=== PATIENT | male | born 1955 | race Caucasian/White ===

== ENCOUNTER 2018-12-14 08:00 | Inpatient (IN) | payer MEDICARE ==
[~2018-12-14] VITALS: Ht 172.7 cm; Wt 145.6 kg
[~2018-12-14 08:00] MED LIST changes: -FURO-68 PO; -GABA600T7 PO
[2018-12-14] MEDS ORDERED: FURO-68 PO (09:48)
[2018-12-14] MEDS ORDERED: GABA600T7 PO (09:53)
[2018-12-22] VITALS (10 sets, daily range): BP systolic 134–145; BP diastolic 67–78
[2018-12-22] MEDS ORDERED: cefOXitin SODIUM IV Push 1 GM VIAL. IVP SCH (06:00)
[2018-12-22] MEDS ORDERED: LIDOCAINE 1% PF 2 ML VIAL. ID PRN (07:00)
[2018-12-22] MEDS ORDERED: fentaNYL PF VIAL 100 MCG/2 ML VIAL IV PRN ×2 (07:00)
[2018-12-22] MEDS ORDERED: ONDANSETRON PF 4 MG/2 ML VIAL. IV PRN (07:00)
[2018-12-22] MEDS ORDERED: PROCHLORPERAZINE 10 MG/2 ML VIAL. IV PRN (07:00)
[2018-12-22] MEDS ORDERED: MORPHINE SULFATE 4 MG/ML VIAL. IV PRN (07:00)
[2018-12-22] MEDS ORDERED: DEXTROSE 50% 25 GM / 50ML DISP.SYRIN. IV ONE (10:15)
[2018-12-22] MEDS: IV RINGERS,LACTATED 1000ML 1,000 ML IV SCH ×2 (10:38→16:02)
[2018-12-22] MEDS ORDERED: IOHEXOL 300 MG/ML 100ML VIAL. ONE (10:45)
[2018-12-22] MEDS ORDERED: LIDOCAINE 2% JELLY 6ML IN APPLICATOR. ONE (10:45)
[2018-12-22 10:55] LABS: PROTHROMBIN TIME PATIENT 13.4 SEC (11.7-14.0)
[2018-12-22] MEDS ORDERED: ONDANSETRON PF 4 MG/2 ML VIAL. ONE (11:00)
[2018-12-22] MEDS ORDERED: ROCURONIUM 50 MG/5 ML VIAL. ONE ×2 (11:00→12:06)
[2018-12-22] MEDS ORDERED: PROPOFOL 20 ML IV ONE (11:00)
[2018-12-22] MEDS ORDERED: LIDOCAINE 2% PF 5 ML VIAL. ONE ×2 (11:00→15:34)
[2018-12-22] MEDS ORDERED: DEXAMETHASONE SOD PHOS 20 MG/5 ML VIAL. ONE (11:00)
[2018-12-22] MEDS ORDERED: fentaNYL PF VIAL 100 MCG/2 ML VIAL ONE (11:00)
--- NOTE | 2018-12-22 11:25 | PDOC1 ---
History and Physical Date of Admission Date of Admission DATE: 12/22/18 TIME: 11:20 Identification/Chief Complaint Chief Complaint colostomy Source Source: Chart review, Patient History of Present Illness History of Present Illness Sid is a morbidly obese male s/p Markie's procedure for perforated diverticulitis. He comes in for take down of his colostomy. Colonoscopy done yesterday was without preventative findings per pt report. Past Medical History Cardiovascular: HTN, Hyperlipidemia, Other Pulmonary: Pulmonary embolus, Other GI: GERD Heme/Onc: No pertinent hx Hepatobiliary: Cholelithiasis Psych: No pertinent hx Musculoskeletal: Osteoarthritis, Other Rheumatologic: No pertinent hx Infectious disease: No pertinent hx Renal/: No pertinent hx Endocrine: Diabetes Past Surgical History Past Surgical History: Cholecystectomy, Colon Resection Family History Family History: High Cholestrol Social History Smoke: Quit ALCOHOL: none Drugs: None Current Medications Current Medications Current Medications Ondansetron HCl (Zofran) 4 mg PRN Q6HRS PRN IV NAUSEA/VOMITING; Start 12/22/18 at 07:00; Stop 12/23/18 at 06:59 Fentanyl Citrate (Fentanyl 2ml Vial) 25 mcg PRN Q5MIN PRN IV MILD PAIN; Start 12/22/18 at 07:00; Stop 12/23/18 at 06:59 Fentanyl Citrate (Fentanyl 2ml Vial) 50 mcg PRN Q5MIN PRN IV MODERATE TO SEVERE PAIN; Start 12/22/18 at 07:00; Stop 12/23/18 at 06:59 Morphine Sulfate (Morphine Sulfate) 1 mg PRN Q10MIN PRN IV SEVERE PAIN; Start 12/22/18 at 07:00; Stop 12/23/18 at 06:59 Ringer's Solution 1,000 ml @ 30 mls/hr Q24H IV Last administered on 12/22/18at 10:38; Start 12/22/18 at 07:00; Stop 12/22/18 at 18:59 Lidocaine HCl (Xylocaine-Mpf 1% 2ml Vial) 2 ml PRN 1X PRN ID IV START; Start at 07:00; Stop 12/23/18 at 06:59 Hydromorphone HCl (Dilaudid) 0.5 mg PRN Q10MIN PRN IV SEV PAIN, Second choice; Start 12/22/18 at 07:00; Stop 12/23/18 at 06:59 Prochlorperazine Edisylate (Compazine) 5 mg PACU PRN PRN IV NAUSEA, MRX1; Start 12/22/18 at 07:00; Stop 12/23/18 at 06:59 Cefoxitin Sodium (Mefoxin) 1 gm PREOP 1X IVP ; Start 12/22/18 at 06:00 Dextrose (Dextrose 50%-Water Syringe) 25 gm 1X ONCE IV Last administered on at 10:38; Start 12/22/18 at 10:15; Stop 12/22/18 at 10:16; Status DC Iohexol (Omnipaque 300 Mg/ml) 100 ml STK-MED ONCE .ROUTE ; Start 12/22/18 at 10: 45; Stop 12/22/18 at 10:46; Status DC Lidocaine HCl (Glydo (Lidocaine) Jelly) 6 enma STK-MED ONCE .ROUTE ; Start at 10:45; Stop 12/22/18 at 10:46; Status DC Lidocaine HCl (Glydo (Lidocaine) Jelly) 6 enma STK-MED ONCE .ROUTE ; Start at 10:45; Stop 12/22/18 at 10:46; Status DC Propofol 20 ml @ As Directed STK-MED ONCE IV ; Start 12/22/18 at 11:00; Stop at 11:01; Status DC Dexamethasone Sodium Phosphate (Decadron) 20 mg STK-MED ONCE .ROUTE ; Start at 11:00; Stop 12/22/18 at 11:01; Status DC Lidocaine HCl (Lidocaine Pf 2% Vial) 5 ml STK-MED ONCE .ROUTE ; Start 12/22/18 at 11:00; Stop 12/22/18 at 11:01; Status DC Ondansetron HCl (Zofran) 4 mg STK-MED ONCE .ROUTE ; Start 12/22/18 at 11:00; Stop 12/22/18 at 11:01; Status DC Rocuronium [place] (Zemuron) 50 mg STK-MED ONCE .ROUTE ; Start 12/22/18 at 11:00 ; Stop 12/22/18 at 11:01; Status DC Fentanyl Citrate (Fentanyl 2ml Vial) 100 mcg STK-MED ONCE .ROUTE ; Start at 11:00; Stop 12/22/18 at 11:01; Status DC Active Scripts Active Morphine Sulfate Er (Morphine Sulfate) 30 Mg Tablet.er 60 Mg PO BID 30 Days Reported Gabapentin 600 Mg Tablet 300 Mg PO BID Lasix (Furosemide) 40 Mg Tablet 1 Tab PO DAILY Glimepiride 4 Mg Tablet 1 Tab PO BID Bystolic (Nebivolol Hcl) 20 Mg Tablet 20 Mg PO DAILY Levothyroxine Sodium 50 Mcg Tablet 75 Mcg PO DAILY Warfarin Sodium 6 Mg Tablet 6 Mg PO DAILY Metformin Hcl 1,000 Mg Tablet 1 Tab PO BID Losartan-Hctz 100-12.5 Mg Tab (Losartan/Hydrochlorothiazide) 1 Each Tablet 1 Tab PO DAILY Allergies Allergies: Coded Allergies: I S O L A T I O N *CONTACT* (Verified Allergy, Unknown, 12/22/18) mrsa No Known Medication Allergies (Verified Allergy, Unknown, 12/22/18) ROS Review of System negative with exception of present complaints Physical Exam General: Alert, Oriented X3, No acute distress HEENT: Atraumatic Lungs: Normal air movement Heart: RRR Abdomen: Soft, Other (obese, well healed midline scar, left sided ostomy ) Extremities: No clubbing Skin: Other (warm, dry) Neuro: Normal speech Vitals Vitals Vital Signs Date Time Temp Pulse Resp B/P (MAP) Pulse Ox O2 Delivery O2 Flow Rate FiO2 12/22/18 10:13 97.4 66 142/72 97 97.4 12/22/18 10:06 20 Labs Labs Laboratory Tests Test 12/22/18 10:07 12/22/18 10:15 12/22/18 10:56 Glucose (Fingerstick) 67 mg/dL (70-99) 84 mg/dL (70-99) Prothrombin Time 13.4 SEC (11.7-14.0) Prothromb Time International Ratio 1.1 (0.8-1.1) Activated Partial Thromboplast Time 30 SEC (24-38) Laboratory Tests Test 12/22/18 10:07 12/22/18 10:15 12/22/18 10:56 Glucose (Fingerstick) 67 mg/dL (70-99) 84 mg/dL (70-99) Prothrombin Time 13.4 SEC (11.7-14.0) Prothromb Time International Ratio 1.1 (0.8-1.1) Activated Partial Thromboplast Time 30 SEC (24-38) VTE Prophylaxis Ordered VTE Prophylaxis Devices: Yes VTE Pharmacological Prophylaxi: Contraindicated Assessment/Plan Assessment/Plan s/p end colostomy, Markie's pouch for perforated diverticulitis, brought for takedown discussed risks with pt and his including but not limited to bleeding, infection, anastomotic leak, possible need for a diverting ileostomy, possible inability to reconnect with resultant permanent end ileostomy they understand and will proceed ANNIE HARRIS MD Dec 22, 2018 11:25
[2018-12-22] MEDS ORDERED: cefOXitin SODIUM 2 GM in IV DEXTROSE 5% 100ML 100 ML IV ONE ×2 (11:45→14:00)
[2018-12-22] MEDS ORDERED: VASOPRESSIN 20 UNIT/ML VIAL. ONE (11:59)
[2018-12-22] MEDS ORDERED: GLYCOPYRROLATE 1 MG/5 ML VIAL. ONE (11:59)
--- NOTE | 2018-12-22 12:09 | PDOC4 ---
OPERATIVE NOTE Date: Date: Dec 22, 2018 Pre-Op Diagnosis: diverticulitis Post-Op Diagnosis: same Procedure Performed: cysto, bl ureter stents Surgeon: Anesthesia Type: ga Blood Loss: 0ml Specimans Obtained: none Findings: nl UOs. Complications: none evident AMBERLY ZIEGLER MD Dec 22, 2018 12:09
[2018-12-22] MEDS ORDERED: PHENYLEPHRINE 10 MG/ML VIAL. ONE (12:15)
--- NOTE | 2018-12-22 12:57 | OP ---
DATE OF SURGERY: PREOPERATIVE DIAGNOSIS: Diverticulitis. POSTOPERATIVE DIAGNOSIS: Diverticulitis. PROCEDURE: Cystoscopy and bilateral stent placement. SURGEON: Mireya Petersen M.D. ANESTHESIA: General. CONDITION: Stable. COMPLICATIONS: None. ESTIMATED BLOOD LOSS: Zero. FINDINGS: Bilateral ureteral orifice in orthotopic and patent position. DESCRIPTION OF PROCEDURE: The patient was taken back to the procedure room and placed in supine position and put under general anesthesia. He was prepped and draped in the usual sterile fashion in dorsal lithotomy position. Time-out was performed. SCDs were attached, IV antibiotics were administered. A 21-Fijian rigid cystoscope was advanced per urethra into the bladder. Careful systemic review of the bladder visualized no foreign body, stones or tumors. Left hemitrigone was visualized in orthotopic and patent position. This was cannulated with a 5-Fijian open-ended ureteral catheter all the way into the kidney. Cystoscope was withdrawn and re-introduced. I did the same on the right side. A 16-Fijian Goff catheter was placed in the bladder with urine drainage and return. With the help of Angiocath, I managed to place both ureteral catheters into the catheter tubing and this was attached to the bag. The patient was handed off to General Surgery. MIREYA PETERSEN MD DR: WENDIE/xenia JOB#: [id number] / [id number]
[2018-12-22] MEDS ORDERED: ALBUMIN HUMAN 5% 500 ML IV ONE (14:35)
[2018-12-22] MEDS ORDERED: SEVOFLURANE > 120 MINUTES. IH ONE (15:03)
[2018-12-22] MEDS ORDERED: NEOSTIGMINE 10 MG/10 ML VIAL. ONE (15:03)
[2018-12-22] MEDS ORDERED: MORPHINE SULFATE 10 MG/ML VIAL. ONE (15:42)
[2018-12-22] MEDS: HYDROmorphone 2 MG/ML VIAL IV PRN ×4 (16:03→17:23)
--- NOTE | 2018-12-22 16:09 | RAD ---
Portable abdomen, 12/22/2018: HISTORY: Postop evaluation, status post colostomy takedown An AP view of the abdomen centered on the left reveals a nonspecific gas pattern. There is a linear radiopacity compatible with a drain projected over the right side of the pelvis. There are scattered vascular calcifications. There is no evidence of a retained surgical instrument, needle or radiopaque sponge on this single view. Electronically signed by: Waldemar Morton MD (12/22/2018 4:06 PM) [facility]
[2018-12-22] MEDS ORDERED: BENZOCAINE/MENTHOL LOZENGE. PO PRN (16:30)
[2018-12-22] MEDS ORDERED: PHENOL ORAL SPRAY 177ML BOTTLE. PO PRN (16:30)
[2018-12-22] MEDS ORDERED: 0.9 % SODIUM CHLORIDE 10 ML DISP.SYRIN. IV PRN (16:30)
--- NOTE | 2018-12-22 16:33 | PDOC ---
BRIEF OPERATIVE NOTE Date: Dec 22, 2018 Pre-Op Diagnosis s/p end colostomy Post-Op Diagnosis same Procedure Performed rigid proctoscopy ALEXANDRA takedown colostomy with colo-colotomy Surgeon Nathan Maintenance Supervisor Kimberlyn BIANCHI Anesthesia Type: General Blood Loss 150cc IV Fluid 3000cc crystalloid 500cc albumin Urine Output 450cc Specimens Obtained stoma proximal pouch Findings adhesions Complications none ANNIE HARRIS MD Dec 22, 2018 16:32
[2018-12-22] MEDS: HYDROmorphone 12mg/30ml PCA 30 ML IV PRN (16:57)
[2018-12-22] MEDS ORDERED: NALOXONE 0.4 MG/ML VIAL. IV PRN (17:00)
--- NOTE | 2018-12-22 19:33 | NUR ---
pt arrived to floor at 1730 from PACU via bed. pt is alert and oriented. pt is in stable condition. pt has FAM drain to RLQ and a midline dressing, all dressings are CDI. pt is on 2LNC and on a OBSTETRICIAN GYNECOLOGIST. pt has at bedside and call light within reach. pt is complaining of 8/10 pain at this time with a goal of 3-4/10. pt has wound that was pictured and documented below his left ear. received report from RONALD Pollock in PACU. will continue to monitor.
[2018-12-22] MEDS: ENOXAPARIN 40 MG/0.4 ML SYRINGE. SQ SCH (20:19)
--- NOTE | 2018-12-22 20:19 | NUR ---
This RN non-administered Lovenox dose 2100, due to sooner than 10 hours post-op. See protocol. Will initiate SCDs and remove Romario kimbrough QHS.
[2018-12-22] MEDS: POTASSIUM CL 20MEQ-0.45% NACL 1,000 ML IV SCH (20:23)
[2018-12-23] MEDS: POTASSIUM CL 20MEQ-0.45% NACL 1,000 ML IV SCH ×3 (01:46→22:02)
--- NOTE | 2018-12-23 02:57 | NUR ---
Patient continually rating pain 8/10, advised that he feels like the SUPERVISOR INCISING is not working. This RN increased demanding dose from 0.2 to 0.3 Q10 per SUPERVISOR INCISING protocol. Will continue to monitor closely.
[2018-12-23 03:00] VITALS: BP 120/65
[2018-12-23 07:00] VITALS: BP 132/66
--- NOTE | 2018-12-23 07:53 | NUR ---
called consult in to dr alejandro at this time
[2018-12-23] MEDS: ENOXAPARIN 40 MG/0.4 ML SYRINGE. SQ SCH ×2 (08:24→22:03)
[2018-12-23] MEDS: HYDROmorphone 12mg/30ml PCA 30 ML IV PRN ×2 (08:27→19:42)
[2018-12-23] MEDS: ONDANSETRON PF 4 MG/2 ML VIAL. IV PRN (08:28)
--- NOTE | 2018-12-23 09:19 | NUR ---
IP: Pt has a hx of + mrsa screen on 09/05/18. Pt to be in contact precautions until there are 2 negative screens 7 days apart.
--- NOTE | 2018-12-23 10:02 | PDOC ---
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 HUMAN RESOURCES PROFESSIONAL 12/23/18 1002: SURGICAL PROGRESS NOTE Subjective not the best pain control no emesis no flatus Vital Signs Vital Signs Date Time Temp Pulse Resp B/P (MAP) Pulse Ox O2 Delivery O2 Flow Rate FiO2 12/23/18 09:00 Nasal Cannula 2.0 12/23/18 07:00 98.1 75 18 132/66 (88) 94 98.1 I&O Intake and Output 12/23/18 06:59 Intake Total 3805 ml Output Total 3495 ml Balance 310 ml Intake Oral 0 ml IV Total 3805 ml Output Urine Total 2700 ml Gastric Drainage Total 500 ml Drainage Total 145 ml Estimated Blood Loss 150 ml PATIENT HAS A RUGGIERO: Yes General: Alert, Oriented X3, Cooperative, No acute distress HEENT: Other (ng bilious ) Abdomen: Soft, Other (dressing dry) Labs Laboratory Tests Test 12/22/18 10:07 12/22/18 10:15 12/22/18 10:56 12/22/18 12:26 Glucose (Fingerstick) 67 mg/dL (70-99) 84 mg/dL (70-99) 78 mg/dL (70-99) Prothrombin Time 13.4 SEC (11.7-14.0) Prothromb Time International Ratio 1.1 (0.8-1.1) Activated Partial Thromboplast Time 30 SEC (24-38) Test 12/22/18 13:47 12/22/18 16:49 12/22/18 20:34 12/23/18 07:15 Glucose (Fingerstick) 84 mg/dL (70-99) 136 mg/dL (70-99) 142 mg/dL (70-99) 126 mg/dL (70-99) Laboratory Tests Test 12/22/18 10:07 12/22/18 10:15 12/22/18 10:56 12/22/18 12:26 Glucose (Fingerstick) 67 mg/dL (70-99) 84 mg/dL (70-99) 78 mg/dL (70-99) Prothrombin Time 13.4 SEC (11.7-14.0) Prothromb Time International Ratio 1.1 (0.8-1.1) Activated Partial Thromboplast Time 30 SEC (24-38) Test 12/22/18 13:47 2/20/19 16:49 12/22/18 20:34 12/23/18 07:15 Glucose (Fingerstick) 84 mg/dL (70-99) 136 mg/dL (70-99) 142 mg/dL (70-99) 126 mg/dL (70-99) Problem List POD #1 takedown colostomy await bowel function, continue NG start some gradual activity ANNIE HARRIS MD 12/23/18 1157: SURGICAL PROGRESS NOTE Assessment/Plan pt seen as above needs to get out of bed NG trial in the AM 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 APRN Dec 23, 2018 10:02 ANNIE HARRIS MD Dec 23, 2018 11:57
--- NOTE | 2018-12-23 10:22 | OP ---
DATE OF SURGERY: 12/22/2018 PREOPERATIVE DIAGNOSIS: Status post end colostomy, Markie pouch for perforated diverticulitis. POSTOPERATIVE DIAGNOSIS: Status post end colostomy, Markie pouch for perforated diverticulitis. PROCEDURE: 1. Rigid proctoscopy. 2. Lysis of adhesions. 3. Takedown colostomy with colocolostomy. SURGEON: Kalyan Harris MD HAND CLOTH FOLDER: ARIAS Khan and ARIAS Tierney. ANESTHESIA: General endotracheal. ESTIMATED BLOOD LOSS: 150 mL. INTRAVENOUS FLUID: 3000 crystalloid, 500 of albumin. URINE OUTPUT: 450 mL. INDICATIONS: The patient is a morbidly obese (BMI of 49) male status post end colostomy, Markie pouch for perforated diverticulitis brought for takedown. OPERATIVE FINDINGS: The liver was smooth and sharp. Stomach unremarkable with an NG tube in place. The small bowel was run from ligament of Treitz to ileocecal valve without abnormality save extensive filmy adhesions. Appendix surgically absent. Cecum was distended transverse colon unremarkable. The distal bowel showed no active inflammatory process. DESCRIPTION OF PROCEDURE: The patient went to the operating suite, given a general endotracheal anesthetic, placed in dorsal lithotomy position. Cystoscopy with ureteral stents placed by Dr. Petersen who will dictate. Digital rectal exam done and the rigid scope placed in the anal canal and under direct vision advanced to approximately 20 cm from the anal verge. A 36-Slovenian chest tube was left for a palpable reference intraabdominally sewn to the buttocks with a silk stitch. The abdomen and perineum were then prepped and draped in usual sterile fashion. The old midline scar was excised and the abdomen carefully entered, opened with cautery taking care to avoid injury to abdominal contents. Abdomen explored with results as noted above. With an Omni self-retaining retractor for exposure, the small bowel was mobilized in its entirety from the ligament of Treitz to ileocecal valve. Two small serosal injuries were repaired with interrupted 3-0 Vicryl. No enterotomies created. We then turned our attention to the distal bowel. The chest tube provided palpable reference. It was then removed. The proximal end was freshened in anticipation of an anastomosis and appeared viable. Colostomy then taken down and a short segment of the distal bowel including the stoma was resected. Similarly, the proximal end of the Markie pouch was resected back to healthy viable tissue. End-to-end anastomosis created with a posterior row of interrupted 3-0 Vicryl suture. The proximal bowel occluded with atraumatic clamp. Staple lines excised. Mucosal anastomosis created with a running locked 3-0 chromic first posteriorly, then anteriorly. Clamp removed. Anastomosis completed with anterior row of interrupted 3-0 Vicryl suture. Gloves were changed and the abdomen was irrigated, evacuated and checked for hemostasis. The anastomosis was submerged in saline and insufflation from below revealed no evidence of air leak. A 19-Slovenian round Mitchel drain was brought through a right lower quadrant stab wound, left in the true pelvis, sewn to the skin with silk stitch. A large vessel loop was placed around the distal small bowel and delivered through the abdominal wall for a "ghost" ileostomy. Area was checked for adequate hemostasis and when present and a correct sponge count obtained, the midline incision was closed in a single layer using looped #1 PDS in running fashion, tied in the middle. Prior to closure, the abdominal wall rent from the old stoma site was closed with a running stitch of 0 Vicryl. Subcutaneous approximated with 3-0 Vicryl. A Damien drain placed in the depths of the wound. Skin closed with a subcuticular 4-0 Monocryl. Anterior sheath at the stoma site closed with a running stitch of 0 Vicryl. The stoma skin approximated with a 3-0 Prolene loosely and Telfa ezequiel placed. Sterile dressing applied. The ureteral stents removed and they were intact. Postop foreign body film was negative for unexplained foreign body. The patient was awakened from his anesthetic and taken to the recovery room in satisfactory condition. KALYAN HARRIS MD DR: FLORIN/xenia JOB#: [id number] / [id number]
[2018-12-23 11:00] VITALS: BP 118/63
--- NOTE | 2018-12-23 11:02 | NUR ---
1100 rescue bolus was given for pain score of 7/10. will continue to monitor.
--- NOTE | 2018-12-23 13:18 | NUR ---
SS following for discharge planning. SS reviewed pt chart. Pt is s/p surgery. Pt is from home with spouse and currently requiring oxygen. PT/OT ordered. SS will await recommendations from PT/OT evaluations and will proceed accordingly with discharge planning.
--- NOTE | 2018-12-23 14:41 | NUR ---
1345 rescue bolus given for pain score of 7/10. will continue to monitor.
--- NOTE | 2018-12-23 14:58 | NUR ---
1455 rescue bolus given for pain score 8/10. will continue to monitor.
--- NOTE | 2018-12-23 14:59 | NUR ---
Wound Care: Patient seen per wound care consult regarding wound to left lower ear. See wound assessment. Dressing removed and wound cleansed and assessed. Recommendations for petroleum gauze and cover with telfa island dressing changing every other day. Dressing applied and patient tolerated well. No other wounds noted upon complete head to toe assessment. Dressing change instructions left in room. Bed lowered and call light in reach. Patient refused to turn at this time.
[2018-12-23 15:00] VITALS: BP 117/67
[2018-12-23 19:20] VITALS: BP 139/68
--- NOTE | 2018-12-23 20:02 | PDOC2 ---
CONSULT Date of Consult Date of Consult DATE: 12/23/18 TIME: 19:54 Reason for Consult Reason for Consult: Medical management Referring Physician Referring Physician: Dr. Evans Identification/Chief Complaint Chief Complaint For surgery Source Source: Chart review, Patient History of Present Illness Reason for Visit: Patient is a 63-year-old gentleman with past medical history of hypertension and dyslipidemia pulmonary embolism on chronic anticoagulation with Coumadin was in his usual state of health until couple months ago when he suffered unfortunately from ruptured diverticulitis requiring a Marinelli's pouch. The patient came to the hospital today for a reversal and takedown of his colostomy. The patient is being seen post op the time my evaluation he is in no acute distress he does complain of some discomfort over his abdominal area after surgery. Patient is on chronic narcotic therapy at home and currently has a INSIDE [employer] pump for his analgesia. We have been asked to see the patient consultation for management of his multiple medical comorbidities. Patient at the time my evaluation seems to be in no apparent distress no concerns voiced during my visit PAST MEDICAL HISTORY Cardiovascular: HTN, Hyperlipidemia, Other (venous insufficeincy) Pulmonary: Pulmonary embolus, Other (DORCAS) GI: GERD Hepatobiliary: Cholelithiasis Psych: No pertinent hx Musculoskeletal: Osteoarthritis, Other (morbid obesity) Rheumatologic: No pertinent hx Infectious disease: No pertinent hx Renal/: No pertinent hx Endocrine: Diabetes (2) Dermatology: Other (venous dermatitis) Past Medical History Past Medical History PAST MEDICAL HISTORY Cardiovascular: HTN, Hyperlipidemia, Other (venous insufficeincy) Pulmonary: Pulmonary embolus, Other (DORCAS) GI: GERD Hepatobiliary: Cholelithiasis Psych: No pertinent hx Musculoskeletal: Osteoarthritis, Other (morbid obesity) Rheumatologic: No pertinent hx Infectious disease: No pertinent hx Renal/: No pertinent hx Endocrine: Diabetes (2) Dermatology: Other (venous dermatitis) Cardiovascular: HTN, Hyperlipidemia, Other Pulmonary: Pulmonary embolus, Other GI: GERD Heme/Onc: No pertinent hx Hepatobiliary: Cholelithiasis Psych: No pertinent hx Musculoskeletal: Osteoarthritis, Other Rheumatologic: No pertinent hx Infectious disease: No pertinent hx Renal/: No pertinent hx Endocrine: Diabetes Past Surgical History Past Surgical History: Cholecystectomy, Colon Resection Family History Family History: High Cholestrol Social History Quit ALCOHOL: none Drugs: None Lives: with Family Current Medications Current Medications Current Medications Ondansetron HCl (Zofran) 4 mg PRN Q6HRS PRN IV NAUSEA/VOMITING; Start 12/22/18 at 07:00; Stop 12/23/18 at 06:59; Status DC Fentanyl Citrate (Fentanyl 2ml Vial) 25 mcg PRN Q5MIN PRN IV MILD PAIN; Start 12/22/18 at 07:00; Stop 12/23/18 at 06:59; Status DC Fentanyl Citrate (Fentanyl 2ml Vial) 50 mcg PRN Q5MIN PRN IV MODERATE TO SEVERE PAIN; Start 12/22/18 at 07:00; Stop 12/23/18 at 06:59; Status DC Morphine Sulfate (Morphine Sulfate) 1 mg PRN Q10MIN PRN IV SEVERE PAIN; Start 12/22/18 at 07:00; Stop 12/23/18 at 06:59; Status DC Ringer's Solution 1,000 ml @ 30 mls/hr Q24H IV Last administered on 12/22/18at 16:02; Start 12/22/18 at 07:00; Stop 12/22/18 at 18:59; Status DC Lidocaine HCl (Xylocaine-Mpf 1% 2ml Vial) 2 ml PRN 1X PRN ID IV START; Start at 07:00; Stop 12/23/18 at 06:59; Status DC Hydromorphone HCl (Dilaudid) 0.5 mg PRN Q10MIN PRN IV SEV PAIN, Second choice Last administered on 12/22/18at 17:23; Start 12/22/18 at 07:00; Stop 12/23/18 at 06:59; Status DC Prochlorperazine Edisylate (Compazine) 5 mg PACU PRN PRN IV NAUSEA, MRX1 Last administered on 12/22/18at 16:03; Start 12/22/18 at 07:00; Stop 12/23/18 at 06:59 ; Status DC Cefoxitin Sodium (Mefoxin) 1 gm PREOP 1X IVP ; Start 12/22/18 at 06:00; Status Cancel Dextrose (Dextrose 50%-Water Syringe) 25 gm 1X ONCE IV Last administered on at 10:38; Start 12/22/18 at 10:15; Stop 12/22/18 at 10:16; Status DC Iohexol (Omnipaque 300 Mg/ml) 100 ml VFA ONCE .ROUTE ; Start 12/22/18 at 10: 45; Stop 12/22/18 at 10:46; Status DC Lidocaine HCl (Glydo (Lidocaine) Jelly) 6 enma STK-MED ONCE .ROUTE ; Start at 10:45; Stop 12/22/18 at 10:46; Status DC Lidocaine HCl (Glydo (Lidocaine) Jelly) 6 enma STK-MED ONCE .ROUTE ; Start at 10:45; Stop 12/22/18 at 10:46; Status Cancel Propofol 20 ml @ As Directed STK-MED ONCE IV ; Start 12/22/18 at 11:00; Stop at 11:01; Status DC Dexamethasone Sodium Phosphate (Decadron) 20 mg STK-MED ONCE .ROUTE ; Start at 11:00; Stop 12/22/18 at 11:01; Status DC Lidocaine HCl (Lidocaine Pf 2% Vial) 5 ml STK-MED ONCE .ROUTE ; Start 12/22/18 at 11:00; Stop 12/22/18 at 11:01; Status DC Ondansetron HCl (Zofran) 4 mg STK-MED ONCE .ROUTE ; Start 12/22/18 at 11:00; Stop 12/22/18 at 11:01; Status DC Rocuronium Trinity (Zemuron) 50 mg STK-MED ONCE .ROUTE ; Start 12/22/18 at 11:00 ; Stop 12/22/18 at 11:01; Status DC Fentanyl Citrate (Fentanyl 2ml Vial) 100 mcg STK-MED ONCE .ROUTE ; Start at 11:00; Stop 12/22/18 at 11:01; Status DC Cefoxitin Sodium 2 gm/Dextrose 100 ml @ 200 mls/hr ONCE ONCE IV Last administered on 12/22/18at 11:46; Start 12/22/18 at 11:45; Stop 12/22/18 at 12:14 ; Status DC Ephedrine Sulfate (Akovaz) 50 mg STK-MED ONCE .ROUTE ; Start 12/22/18 at 11:56; Stop 12/22/18 at 11:57; Status DC Ephedrine Sulfate (Akovaz) 25 mg 1X ONCE IV ; Start 12/22/18 at 12:00; Stop at 12:01; Status DC Glycopyrrolate (Robinul) 1 mg STK-MED ONCE .ROUTE ; Start 12/22/18 at 11:59; Stop 12/22/18 at 12:00; Status DC Vasopressin (Vasostrict) 20 unit STK-MED ONCE .ROUTE ; Start 12/22/18 at 11:59; Stop 12/22/18 at 12:00; Status DC Rocuronium Trinity (Zemuron) 50 mg STK-MED ONCE .ROUTE ; Start 12/22/18 at 12:06 ; Stop 12/22/18 at 12:07; Status DC Phenylephrine HCl (Craig-Synephrine Inj) 10 mg STK-MED ONCE .ROUTE ; Start at 12:15; Stop 12/22/18 at 12:16; Status DC Cefoxitin Sodium 2 gm/Dextrose 100 ml @ 200 mls/hr ONCE ONCE IV Last administered on 12/22/18at 13:55; Start 12/22/18 at 14:00; Stop 12/22/18 at 14:29 ; Status DC Albumin Human 500 ml @ As Directed STK-MED ONCE IV ; Start 12/22/18 at 14:35; Stop 12/22/18 at 14:36; Status DC Sevoflurane (Ultane) 90 ml STK-MED ONCE IH ; Start 12/22/18 at 15:03; Stop 12/22 at 15:04; Status DC Neostigmine Methylsulfate (Bloxiverz) 10 mg STK-MED ONCE .ROUTE ; Start at 15:03; Stop 12/22/18 at 15:04; Status DC Lidocaine HCl (Lidocaine Pf 2% Vial) 5 ml STK-MED ONCE .ROUTE ; Start 12/22/18 at 15:34; Stop 12/22/18 at 15:35; Status DC Morphine Sulfate (Morphine Sulfate) 10 mg STK-MED ONCE .ROUTE ; Start 12/22/18 at 15:42; Stop 12/22/18 at 15:43; Status DC Enoxaparin Sodium (Lovenox 40mg Syringe) 40 mg Q12HR SQ Last administered on at 08:24; Start 12/22/18 at 21:00 Sodium Chloride (Normal Saline Flush) 3 ml QSHIFT PRN IV AFTER MEDS AND BLOOD DRAWS; Start 12/22/18 at 16:30 Potassium Chloride/Sodium Chloride 1,000 ml @ 100 mls/hr Q10H IV Last administered on 12/23/18at 11:56; Start 12/22/18 at 18:00 Hydromorphone HCl 30 ml @ 0 mls/hr CONT PRN PRN IV PER PROTOCOL Last administered on 12/23/18at 19:42; Start 12/22/18 at 16:30 Ondansetron HCl (Zofran) 4 mg PRN Q6HRS PRN IV NAUESA, 1ST CHOICE Last administered on 12/23/18at 08:28; Start 12/22/18 at 16:30 Throat Lozenges (Chloraseptic) 1 spray PRN Q2HR PRN PO SORE THROAT 2ND CHOICE; Start 12/22/18 at 16:30 Throat Lozenges (Cepacol Sore Throat Lozenge) 1 sridhar PRN Q2HRS PRN PO SORE THROAT 1ST CHOICE; Start 12/22/18 at 16:30 Naloxone HCl (Narcan) 0.4 mg PRN Q2MIN PRN IV SEE COMMENTS; Start 12/22/18 at 17:00 Cefoxitin Sodium 100 ml @ As Directed STK-MED ONCE IV ; Start 12/22/18 at 11:32 ; Stop 12/23/18 at 10:40; Status DC Active Scripts Active Morphine Sulfate Er (Morphine Sulfate) 30 Mg Tablet.er 60 Mg PO BID 30 Days Reported Gabapentin 600 Mg Tablet 300 Mg PO BID Lasix (Furosemide) 40 Mg Tablet 1 Tab PO DAILY Glimepiride 4 Mg Tablet 1 Tab PO BID Bystolic (Nebivolol Hcl) 20 Mg Tablet 20 Mg PO DAILY Levothyroxine Sodium 50 Mcg Tablet 75 Mcg PO DAILY Warfarin Sodium 6 Mg Tablet 6 Mg PO DAILY Metformin Hcl 1,000 Mg Tablet 1 Tab PO BID Losartan-Hctz 100-12.5 Mg Tab (Losartan/Hydrochlorothiazide) 1 Each Tablet 1 Tab PO DAILY Allergies Allergies: Coded Allergies: I S O L A T I O N *CONTACT* (Verified Allergy, Unknown, 12/22/18) mrsa No Known Medication Allergies (Verified Allergy, Unknown, 12/22/18) ROS Review of System Pertinent as per history of present illness with abdominal pain and otherwise 14 point review of system is negative Physical Exam Physical Exam Gen.: Morbidly obese in mild to moderate distress Head: Normal shape atraumatic Eyes: Pupils equal reactive to light and accommodation, normal conjunctivae and lids Ears: Normal shape Nose: Normal shape no trauma Mouth: No exudates of the back of throat no thrush no lesions Neck: Supple no JVD no carotid bruit or lymphadenopathy no thyromegaly Chest: Lungs clear to auscultation with good inspiratory effort no crackles rales or rhonchi Cardiovascular: S1-S2 regular rhythm no murmurs gallops or rubs Abdomen: Bowel sounds hypoactive positive tenderness surgical dressings in place Extremities: No clubbing no cyanosis no edema peripheral pulses palpated bilaterally Neurological: Alert awake oriented in person time place and situation, cranial nerves II through XII intact, no motor or sensory deficits appreciated Psych: Appropriate mood, cooperative Vitals VITALS Vital Signs Date Time Temp Pulse Resp B/P (MAP) Pulse Ox O2 Delivery O2 Flow Rate FiO2 12/23/18 19:42 13 94 Nasal Cannula 2.0 12/23/18 15:00 98.1 91 117/67 (84) 98.1 Labs Labs Laboratory Tests Test 12/22/18 10:07 12/22/18 10:15 12/22/18 10:56 12/22/18 12:26 Glucose (Fingerstick) 67 mg/dL (70-99) 84 mg/dL (70-99) 78 mg/dL (70-99) Prothrombin Time 13.4 SEC (11.7-14.0) Prothromb Time International Ratio 1.1 (0.8-1.1) Activated Partial Thromboplast Time 30 SEC (24-38) Test 12/22/18 13:47 12/22/18 16:49 12/22/18 18:15 12/22/18 20:34 Glucose (Fingerstick) 84 mg/dL (70-99) 136 mg/dL (70-99) 142 mg/dL (70-99) Nasal Screen MRSA (PCR) Positive (Negative) Test 12/23/18 07:15 12/23/18 11:48 12/23/18 17:10 Glucose (Fingerstick) 126 mg/dL (70-99) 114 mg/dL (70-99) 113 mg/dL (70-99) Laboratory Tests Test 12/22/18 20:34 12/23/18 07:15 12/23/18 11:48 12/23/18 17:10 Glucose (Fingerstick) 142 mg/dL (70-99) 126 mg/dL (70-99) 114 mg/dL (70-99) 113 mg/dL (70-99) Assessment/Plan Assessment/Plan status post colostomy takedown HTN, fairly controlled Hyperlipidemia History of Pulmonary embolus, chronic anticoagulation with coumadin GERD Cholelithiasis Osteoarthritis, Other (morbid obesity) Diabetes mellitus type 2 insulin requiring Venous dermatitis Plan: resume home meds incentive spirometry resume coumadin once approved by attending further recommendations based on clinical course thank you for the consult. SABRINA INFANTE MD Dec 23, 2018 20:02
[2018-12-23 22:51] VITALS: BP 119/68
[2018-12-24 03:15] VITALS: BP_SYST 108; BP_SYST 134; BP_DIAS 64; BP_DIAS 72
[2018-12-24] MEDS: ONDANSETRON PF 4 MG/2 ML VIAL. IV PRN ×2 (04:31→15:29)
[2018-12-24 07:00] VITALS: BP 137/79
[2018-12-24] MEDS: POTASSIUM CL 20MEQ-0.45% NACL 1,000 ML IV SCH (08:38)
[2018-12-24] MEDS: ENOXAPARIN 40 MG/0.4 ML SYRINGE. SQ SCH ×2 (08:38→21:44)
[2018-12-24] MEDS: HYDROmorphone 12mg/30ml PCA 30 ML IV PRN ×2 (09:01→19:55)
--- NOTE | 2018-12-24 09:49 | PDOC ---
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 12/24/18 0949: SURGICAL PROGRESS NOTE Subjective resting up once yesterday no flatus NG over 2000cc out Vital Signs Vital Signs Date Time Temp Pulse Resp B/P (MAP) Pulse Ox O2 Delivery O2 Flow Rate FiO2 12/24/18 09:01 Nasal Cannula 2.0 12/24/18 07:00 97.8 90 18 137/79 (98) 91 97.8 I&O Intake and Output 12/24/18 06:59 Intake Total 25 ml Output Total 6545 ml Balance -6520 ml IV Total 25 ml Output Urine Total 2550 ml Gastric Drainage Total 3950 ml Drainage Total 45 ml PATIENT HAS A RUGGIERO: Yes (dc today) General: Alert, Oriented X3, Cooperative, No acute distress HEENT: Other (ng bilious) Abdomen: Soft, Other (dressing in place) Labs Laboratory Tests Test 12/22/18 10:07 12/22/18 10:15 12/22/18 10:56 12/22/18 12:26 Glucose (Fingerstick) 67 mg/dL (70-99) 84 mg/dL (70-99) 78 mg/dL (70-99) Prothrombin Time 13.4 SEC (11.7-14.0) Prothromb Time International Ratio 1.1 (0.8-1.1) Activated Partial Thromboplast Time 30 SEC (24-38) Test 12/22/18 13:47 12/22/18 16:49 12/22/18 18:15 12/22/18 20:34 Glucose (Fingerstick) 84 mg/dL (70-99) 136 mg/dL (70-99) 142 mg/dL (70-99) Nasal Screen MRSA (PCR) Positive (Negative) Test 12/23/18 07:15 12/23/18 11:48 12/23/18 17:10 12/23/18 21:08 Glucose (Fingerstick) 126 mg/dL (70-99) 114 mg/dL (70-99) 113 mg/dL (70-99) 138 mg/dL (70-99) Test 12/24/18 07:58 Glucose (Fingerstick) 107 mg/dL (70-99) Laboratory Tests Test 12/23/18 11:48 12/23/18 17:10 12/23/18 21:08 12/24/18 07:58 Glucose (Fingerstick) 114 mg/dL (70-99) 113 mg/dL (70-99) 138 mg/dL (70-99) 107 mg/dL (70-99) Assessment/Plan JADA ruggiero increase activity high NG output--will leave in place toANNIE Martinez MD 12/24/18 1413: SURGICAL PROGRESS NOTE Assessment/Plan pt seen and examined agree with above POD 2 takedown colostomy will trial NG in the AM Dr Luque to follow over the weekend 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 APRN Dec 24, 2018 09:49 ANNIE HARRIS MD Dec 24, 2018 14:13
[2018-12-24 11:00] VITALS: BP 112/69
[2018-12-24] MEDS ORDERED: BENZOCAINE/MENTHOL LOZENGE. PO PRN (11:15)
[2018-12-24] MEDS ORDERED: SALIVA STIMULANT AGENT 44ML SPRAY BOTTLE. PO PRN (11:15)
--- NOTE | 2018-12-24 14:09 | PATHOLOGY ---
[facility] Accession Number: [id number] . 01 Material submitted: . PART A: SEROSAL NODULE PART B: STOMA PART C: PROXIMAL HORACIO POUCH . 01 Clinical history: . Diverticulitis. . 02 Diagnosis: A. Soft tissue, "serosal nodule", removal: - Fibromuscular tissue with spherical focus of acute inflammation and focal foreign body giant cells, findings compatible with ruptured diverticulum. . B. "Stoma", removal: - Segment of colonic mucosa with chronic serositis. - Adjacent squamous epithelium with mild hyperplastic changes and mild chronic inflammation. . C. "Proximal Horacio's pouch", removal: - Segment of colonic mucosa with focal submucosal mild chronic inflammation. (SKM:tobias; 12/24/2018) QMS/12/24/2018 . 02 Electronically signed: . Frantz Boss MD, Pathologist NPI- [id number] . 01 Gross description: . A. Received in formalin labeled "Leyva, Sid, serosal nodule" is a ruffin-brown firm portion of tissue measuring 0.8 x 0.6 x 0.5 cm. The specimen is bisected and submitted entirely in cassette A1. . B. Received in formalin labeled "Leyva, Sid, stoma" is a segment of bowel measuring 4.1 cm in length and 3.8 cm in diameter. One end is closed with a staple line and the opposite aspect ends into a portion of ruffin-white skin, consistent with an ostomy site. The serosa is pink-red and ragged. The specimen is opened to reveal slightly dilated ruffin-brown mucosa without polyps or masses. A underwriting service representative section is submitted in cassette B1. . C. Received in formalin labeled "Leyva, Sid, proximal Horacio's pouch" is a segment of pink-ruffin possible bowel measuring 2.1 cm in length and 4.5 cm in diameter. The serosa is pink-red and ragged, with a staple line along one aspect. The opposite aspect ends in a blind pouch with an embedded staple line. The staple line is removed and the specimen is opened to reveal ruffin-brown mucosa with no gross abnormalities. Harness Maker sections are submitted in cassette C1. ([facility]; 12/23/2018) SYC/SYC . 02 Pathologist provided ICD-10: K57.80, K65.8, K52.9 . 02 CPT . 722137, 701707, 854150 Specimen Comment: A courtesy copy of this report has been sent to Specimen Comment: [phone], . Specimen Comment: Report sent to / DR DAVILA Performed at: 01 [facility] [address] [facility] [address], [place] [id number] MD Raul Grier MD Phone: [phone] Performed at: 02 [facility] [address] [place], [place] [id number] MD Dylan Eldridge MD Phone: [phone]
--- NOTE | 2018-12-24 14:24 | PDOC ---
PROGRESS NOTES Chief Complaint Chief Complaint status post colostomy takedown HTN, fairly controlled Hyperlipidemia History of Pulmonary embolus, chronic anticoagulation with coumadin GERD Cholelithiasis Osteoarthritis, obesity, BMI 48 Diabetes mellitus type 2 insulin requiring Venous dermatitis History of Present Illness History of Present Illness OOB to chair cont the NG tube, oral care, biotene, plan to resume coumadin Vitals Vitals Vital Signs Date Time Temp Pulse Resp B/P (MAP) Pulse Ox O2 Delivery O2 Flow Rate FiO2 12/24/18 11:00 98.2 95 16 112/69 (83) 92 Room Air 98.2 12/24/18 09:48 1.0 Physical Exam General: Alert, Oriented X3, Cooperative, No acute distress Heart: Regular rate, No murmurs Lungs: Clear Abdomen: Soft, Other (dressing in place) Extremities: No clubbing Skin: Other (warm, dry) Labs LABS Laboratory Tests Test 12/23/18 17:10 12/23/18 21:08 12/24/18 07:58 12/24/18 11:15 Glucose (Fingerstick) 113 mg/dL (70-99) 138 mg/dL (70-99) 107 mg/dL (70-99) 122 mg/dL (70-99) Review of Systems Review of Systems NG tube is bothersome abd pain OK Comment Review of Relevant I have reviewed the following items shannon (where applicable) has been applied. Labs Laboratory Tests Test 12/22/18 16:49 12/22/18 18:15 12/22/18 20:34 12/23/18 07:15 Glucose (Fingerstick) 136 mg/dL (70-99) 142 mg/dL (70-99) 126 mg/dL (70-99) Nasal Screen MRSA (PCR) Positive (Negative) Test 12/23/18 11:48 12/23/18 17:10 12/23/18 21:08 12/24/18 07:58 Glucose (Fingerstick) 114 mg/dL (70-99) 113 mg/dL (70-99) 138 mg/dL (70-99) 107 mg/dL (70-99) Test 12/24/18 11:15 Glucose (Fingerstick) 122 mg/dL (70-99) Laboratory Tests Test 12/23/18 17:10 12/23/18 21:08 12/24/18 07:58 12/24/18 11:15 Glucose (Fingerstick) 113 mg/dL (70-99) 138 mg/dL (70-99) 107 mg/dL (70-99) 122 mg/dL (70-99) Medications Current Medications Ondansetron HCl (Zofran) 4 mg PRN Q6HRS PRN IV NAUSEA/VOMITING; Start 12/22/18 at 07:00; Stop 12/23/18 at 06:59; Status DC Fentanyl Citrate (Fentanyl 2ml Vial) 25 mcg PRN Q5MIN PRN IV MILD PAIN; Start 12/22/18 at 07:00; Stop 12/23/18 at 06:59; Status DC Fentanyl Citrate (Fentanyl 2ml Vial) 50 mcg PRN Q5MIN PRN IV MODERATE TO SEVERE PAIN; Start 12/22/18 at 07:00; Stop 12/23/18 at 06:59; Status DC Morphine Sulfate (Morphine Sulfate) 1 mg PRN Q10MIN PRN IV SEVERE PAIN; Start 12/22/18 at 07:00; Stop 12/23/18 at 06:59; Status DC Ringer's Solution 1,000 ml @ 30 mls/hr Q24H IV Last administered on 12/22/18at 16:02; Start 12/22/18 at 07:00; Stop 12/22/18 at 18:59; Status DC Lidocaine HCl (Xylocaine-Mpf 1% 2ml Vial) 2 ml PRN 1X PRN ID IV START; Start at 07:00; Stop 12/23/18 at 06:59; Status DC Hydromorphone HCl (Dilaudid) 0.5 mg PRN Q10MIN PRN IV SEV PAIN, Second choice Last administered on 12/22/18at 17:23; Start 12/22/18 at 07:00; Stop 12/23/18 at 06:59; Status DC Prochlorperazine Edisylate (Compazine) 5 mg PACU PRN PRN IV NAUSEA, MRX1 Last administered on 12/22/18at 16:03; Start 12/22/18 at 07:00; Stop 12/23/18 at 06:59 ; Status DC Cefoxitin Sodium (Mefoxin) 1 gm PREOP 1X IVP ; Start 12/22/18 at 06:00; Status Cancel Dextrose (Dextrose 50%-Water Syringe) 25 gm 1X ONCE IV Last administered on at 10:38; Start 12/22/18 at 10:15; Stop 12/22/18 at 10:16; Status DC Iohexol (Omnipaque 300 Mg/ml) 100 ml STK-MED ONCE .ROUTE ; Start 12/22/18 at 10: 45; Stop 12/22/18 at 10:46; Status DC Lidocaine HCl (Glydo (Lidocaine) Jelly) 6 enma STK-MED ONCE .ROUTE ; Start at 10:45; Stop 12/22/18 at 10:46; Status DC Lidocaine HCl (Glydo (Lidocaine) Jelly) 6 enma STK-MED ONCE .ROUTE ; Start at 10:45; Stop 12/22/18 at 10:46; Status Cancel Propofol 20 ml @ As Directed STK-MED ONCE IV ; Start 12/22/18 at 11:00; Stop at 11:01; Status DC Dexamethasone Sodium Phosphate (Decadron) 20 mg STK-MED ONCE .ROUTE ; Start at 11:00; Stop 12/22/18 at 11:01; Status DC Lidocaine HCl (Lidocaine Pf 2% Vial) 5 ml STK-MED ONCE .ROUTE ; Start 12/22/18 at 11:00; Stop 12/22/18 at 11:01; Status DC Ondansetron HCl (Zofran) 4 mg STK-MED ONCE .ROUTE ; Start 12/22/18 at 11:00; Stop 12/22/18 at 11:01; Status DC Rocuronium [place] (Zemuron) 50 mg STK-MED ONCE .ROUTE ; Start 12/22/18 at 11:00 ; Stop 12/22/18 at 11:01; Status DC Fentanyl Citrate (Fentanyl 2ml Vial) 100 mcg STK-MED ONCE .ROUTE ; Start at 11:00; Stop 12/22/18 at 11:01; Status DC Cefoxitin Sodium 2 gm/Dextrose 100 ml @ 200 mls/hr ONCE ONCE IV Last administered on 12/22/18at 11:46; Start 12/22/18 at 11:45; Stop 12/22/18 at 12:14 ; Status DC Ephedrine Sulfate (Akovaz) 50 mg STK-MED ONCE .ROUTE ; Start 12/22/18 at 11:56; Stop 12/22/18 at 11:57; Status DC Ephedrine Sulfate (Akovaz) 25 mg 1X ONCE IV ; Start 12/22/18 at 12:00; Stop at 12:01; Status DC Glycopyrrolate (Robinul) 1 mg STK-MED ONCE .ROUTE ; Start 12/22/18 at 11:59; Stop 12/22/18 at 12:00; Status DC Vasopressin (Vasostrict) 20 unit STK-MED ONCE .ROUTE ; Start 12/22/18 at 11:59; Stop 12/22/18 at 12:00; Status DC Rocuronium [place] (Zemuron) 50 mg STK-MED ONCE .ROUTE ; Start 12/22/18 at 12:06 ; Stop 12/22/18 at 12:07; Status DC Phenylephrine HCl (Craig-Synephrine Inj) 10 mg STK-MED ONCE .ROUTE ; Start at 12:15; Stop 12/22/18 at 12:16; Status DC Cefoxitin Sodium 2 gm/Dextrose 100 ml @ 200 mls/hr ONCE ONCE IV Last administered on 12/22/18at 13:55; Start 12/22/18 at 14:00; Stop 12/22/18 at 14:29 ; Status DC Albumin Human 500 ml @ As Directed STK-MED ONCE IV ; Start 12/22/18 at 14:35; Stop 12/22/18 at 14:36; Status DC Sevoflurane (Ultane) 90 ml STK-MED ONCE IH ; Start 12/22/18 at 15:03; Stop 12/22 at 15:04; Status DC Neostigmine Methylsulfate (Bloxiverz) 10 mg STK-MED ONCE .ROUTE ; Start at 15:03; Stop 12/22/18 at 15:04; Status DC Lidocaine HCl (Lidocaine Pf 2% Vial) 5 ml STK-MED ONCE .ROUTE ; Start 12/22/18 at 15:34; Stop 12/22/18 at 15:35; Status DC Morphine Sulfate (Morphine Sulfate) 10 mg STK-MED ONCE .ROUTE ; Start 12/22/18 at 15:42; Stop 12/22/18 at 15:43; Status DC Enoxaparin Sodium (Lovenox 40mg Syringe) 40 mg Q12HR SQ Last administered on at 08:38; Start 12/22/18 at 21:00 Sodium Chloride (Normal Saline Flush) 3 ml QSHIFT PRN IV AFTER MEDS AND BLOOD DRAWS; Start 12/22/18 at 16:30 Potassium Chloride/Sodium Chloride 1,000 ml @ 100 mls/hr Q10H IV Last administered on 12/24/18at 08:38; Start 12/22/18 at 18:00 Hydromorphone HCl 30 ml @ 0 mls/hr CONT PRN PRN IV PER PROTOCOL Last administered on 12/24/18at 09:01; Start 12/22/18 at 16:30 Ondansetron HCl (Zofran) 4 mg PRN Q6HRS PRN IV NAUESA, 1ST CHOICE Last administered on 12/24/18at 04:31; Start 12/22/18 at 16:30 Throat Lozenges (Chloraseptic) 1 spray PRN Q2HR PRN PO SORE THROAT 2ND CHOICE; Start 12/22/18 at 16:30 Throat Lozenges (Cepacol Sore Throat Lozenge) 1 sridhar PRN Q2HRS PRN PO SORE THROAT 1ST CHOICE; Start 12/22/18 at 16:30 Naloxone HCl (Narcan) 0.4 mg PRN Q2MIN PRN IV SEE COMMENTS; Start 12/22/18 at 17:00 Cefoxitin Sodium 100 ml @ As Directed STK-MED ONCE IV ; Start 12/22/18 at 11:32 ; Stop 12/23/18 at 10:40; Status DC Throat Lozenges (Cepacol Sore Throat Lozenge) 1 sridhar PRN Q2HRS PRN PO SORE THROAT; Start 12/24/18 at 11:15; Status UNV Saliva Substitute (Biotene Moisturizing Mouth) 2 spray PRN Q15MIN PRN PO DRY MOUTH; Start 12/24/18 at 11:15 Active Scripts Active Morphine Sulfate Er (Morphine Sulfate) 30 Mg Tablet.er 60 Mg PO BID 30 Days Reported Gabapentin 600 Mg Tablet 300 Mg PO BID Lasix (Furosemide) 40 Mg Tablet 1 Tab PO DAILY Glimepiride 4 Mg Tablet 1 Tab PO BID Bystolic (Nebivolol Hcl) 20 Mg Tablet 20 Mg PO DAILY Levothyroxine Sodium 50 Mcg Tablet 75 Mcg PO DAILY Warfarin Sodium 6 Mg Tablet 6 Mg PO DAILY Metformin Hcl 1,000 Mg Tablet 1 Tab PO BID Losartan-Hctz 100-12.5 Mg Tab (Losartan/Hydrochlorothiazide) 1 Each Tablet 1 Tab PO DAILY Vitals/I & O Vital Sign - Last 24 Hours 12/23/18 12/23/18 12/23/18 12/23/18 15:00 19:20 19:42 20:00 Temp 98.1 98.6 98.1 98.6 Pulse 91 88 Resp 16 18 13 B/P (MAP) 117/67 (84) 139/68 (91) Pulse Ox 94 95 94 O2 Delivery Room Air Nasal Cannula Nasal Cannula Nasal Cannula O2 Flow Rate 2.0 2.0 2.0 12/23/18 12/23/18 12/24/18 12/24/18 20:15 22:51 03:15 07:00 Temp 97.5 98.0 97.8 97.5 98.0 97.8 Pulse 88 91 90 Resp 16 18 18 B/P (MAP) 119/68 (85) 134/72 (92) 137/79 (98) Pulse Ox 94 97 94 91 O2 Delivery Nasal Cannula Nasal Cannula Room Air O2 Flow Rate 2.0 2.0 12/24/18 12/24/18 12/24/18 12/24/18 07:45 09:01 09:48 11:00 Temp 98.2 98.2 Pulse 95 Resp 16 B/P (MAP) 112/69 (83) Pulse Ox 92 O2 Delivery Room Air Nasal Cannula Nasal Cannula Room Air O2 Flow Rate 2.0 1.0 Intake and Output 12/23/18 12/23/18 12/24/18 15:00 23:00 07:00 Intake Total 25 ml Output Total 2880 ml 3665 ml Balance 25 ml -2880 ml -3665 ml KAREN ROY MD Dec 24, 2018 14:24
[2018-12-24] MEDS ORDERED: LEVOTHYROXINE SODIUM INJ 50 MCG in NORMAL SALINE 5 ML IVP SCH (14:30)
[2018-12-24] MEDS ORDERED: DEXTROSE 50% 25 GM / 50ML DISP.SYRIN. IV PRN (14:30)
[2018-12-24 15:00] VITALS: BP 109/76
[2018-12-24] MEDS ORDERED: INSULIN GLARGINE 300 UNITS/3 ML INSULN.PEN. SQ SCH (15:00)
[2018-12-24] MEDS: POTASSIUM CL 20MEQ D5-0.45NACL 1,000 ML IV SCH (15:31)
[2018-12-24] MEDS: INSULIN LISPRO 300 UNITS/3 ML INSULN.PEN. SQ SCH (17:00)
[2018-12-24 19:15] VITALS: BP 121/66
[2018-12-24] MEDS: INSULIN GLARGINE 300 UNITS/3 ML INSULN.PEN. SQ SCH (21:49)
[2018-12-24 23:00] VITALS: BP 108/62
[2018-12-25] MEDS: POTASSIUM CL 20MEQ D5-0.45NACL 1,000 ML IV SCH ×3 (00:30→21:17)
[2018-12-25 03:02] VITALS: BP 134/74
[2018-12-25 07:00] VITALS: BP 147/82
[2018-12-25] MEDS: INSULIN LISPRO 300 UNITS/3 ML INSULN.PEN. SQ SCH ×3 (08:14→17:00)
[2018-12-25] MEDS: ENOXAPARIN 40 MG/0.4 ML SYRINGE. SQ SCH ×2 (08:15→21:20)
[2018-12-25] MEDS: HYDROmorphone 12mg/30ml PCA 30 ML IV PRN (09:24)
[2018-12-25 10:42] LABS: ALBUMIN 2.5 g/dL (3.4-5.0); ALBUMIN/GLOBULIN RATIO 0.5 (1.0-1.7); CALCIUM 8.7 mg/dL (8.5-10.1); CREATININE 0.8 mg/dL (0.7-1.3); GFR 97.6; POTASSIUM 3.6 mmol/L (3.5-5.1); TOTAL BILIRUBIN 0.4 mg/dL (0.2-1.0); TOTAL PROTEIN 7.1 g/dL (6.4-8.2)
[2018-12-25 11:00] VITALS: BP 125/84
[2018-12-25 11:02] LABS: BASO # 0.1 x10^3/uL (0.0-0.2); BASO % 1 % (0-3); EOS # 0.1 x10^3/uL (0.0-0.7); EOS % 1 % (0-3); HEMATOCRIT 38.1 % (39.0-53.0); HEMOGLOBIN 11.6 g/dL (13.0-17.5); LYMPH # 1.2 x10^3/uL (1.0-4.8); LYMPH % 9 % (24-48); MEAN CORPUSCULAR HEMOGLOBIN 22 pg (25-35); MEAN CORPUSCULAR HGB CONC 30 g/dL (31-37); MEAN CORPUSCULAR VOLUME 73 fL (79-100); MONO # 1.6 x10^3/uL (0.0-1.1); MONO % 12 % (0-9); NEUT # 10.8 x10^3uL (1.8-7.7); NEUT % 78 % (31-73); PLATELET COUNT 279 x10^3/uL (140-400); RED BLOOD COUNT 5.22 x10^6/uL (4.30-5.70); RED CELL DISTRIBUTION WIDTH 19.4 % (11.5-14.5); WHITE BLOOD COUNT 13.8 x10^3/uL (4.0-11.0)
[2018-12-25 12:46] LABS: PLT ESTIMATE ADEQUATE (ADEQUATE)
[2018-12-25 12:47] LABS: ANISOCYTOSIS PRESENT; HYPOCHROMIA PRESENT; MICROCYTOSIS PRESENT
--- NOTE | 2018-12-25 14:45 | PDOC ---
SURGICAL PROGRESS NOTE Subjective Pt with c/o NGT, no flatus, pain controlled Vital Signs Vital Signs Date Time Temp Pulse Resp B/P (MAP) Pulse Ox O2 Delivery O2 Flow Rate FiO2 12/25/18 11:00 97.9 102 20 125/84 (98) 93 Room Air 97.9 12/24/18 19:15 3.0 I&O Intake and Output 12/25/18 07:00 Intake Total 1936 ml Output Total 7295 ml Balance -5359 ml Blood Product IV Normal Saline Flush 1936 ml Output Urine Total 1125 ml Gastric Drainage Total 6050 ml Drainage Total 120 ml General: Alert, Oriented X3, Cooperative, No acute distress Abdomen: Soft, No tenderness, Other (drain serosang, dressing intact) Labs Laboratory Tests Test 12/23/18 17:10 12/23/18 21:08 12/24/18 07:58 12/24/18 11:15 Glucose (Fingerstick) 113 mg/dL (70-99) 138 mg/dL (70-99) 107 mg/dL (70-99) 122 mg/dL (70-99) Test 12/24/18 17:13 12/24/18 21:05 12/25/18 07:29 12/25/18 10:05 Glucose (Fingerstick) 122 mg/dL (70-99) 140 mg/dL (70-99) 145 mg/dL (70-99) White Blood Count 13.8 x10^3/uL (4.0-11.0) Red Blood Count 5.22 x10^6/uL (4.30-5.70) Hemoglobin 11.6 g/dL (13.0-17.5) Hematocrit 38.1 % (39.0-53.0) Mean Corpuscular Volume 73 fL (79-100) Mean Corpuscular Hemoglobin 22 pg (25-35) Mean Corpuscular Hemoglobin Concent 30 g/dL (31-37) Red Cell Distribution Width 19.4 % (11.5-14.5) Platelet Count 279 x10^3/uL (140-400) Neutrophils (%) (Auto) 78 % (31-73) Lymphocytes (%) (Auto) 9 % (24-48) Monocytes (%) (Auto) 12 % (0-9) Eosinophils (%) (Auto) 1 % (0-3) Basophils (%) (Auto) 1 % (0-3) Neutrophils # (Auto) 10.8 x10^3uL (1.8-7.7) Lymphocytes # (Auto) 1.2 x10^3/uL (1.0-4.8) Monocytes # (Auto) 1.6 x10^3/uL (0.0-1.1) Eosinophils # (Auto) 0.1 x10^3/uL (0.0-0.7) Basophils # (Auto) 0.1 x10^3/uL (0.0-0.2) Platelet Estimate Adequate (ADEQUATE) Large Platelets Present Hypochromasia Present Anisocytosis Present Microcytosis Present Sodium Level 144 mmol/L (136-145) Potassium Level 3.6 mmol/L (3.5-5.1) Chloride Level 103 mmol/L (98-107) Carbon Dioxide Level 31 mmol/L (21-32) Anion Gap 10 (6-14) Blood Urea Nitrogen 17 mg/dL (8-26) Creatinine 0.8 mg/dL (0.7-1.3) Estimated GFR (Cockcroft-Gault) 97.6 BUN/Creatinine Ratio 21 (6-20) Glucose Level 153 mg/dL (70-99) Calcium Level 8.7 mg/dL (8.5-10.1) Total Bilirubin 0.4 mg/dL (0.2-1.0) Aspartate Amino Transf (AST/SGOT) 13 U/L (15-37) Alanine Aminotransferase (ALT/SGPT) 18 U/L (16-63) Alkaline Phosphatase 81 U/L (46-116) Total Protein 7.1 g/dL (6.4-8.2) Albumin 2.5 g/dL (3.4-5.0) Albumin/Globulin Ratio 0.5 (1.0-1.7) Test 12/25/18 11:26 Glucose (Fingerstick) 140 mg/dL (70-99) Laboratory Tests Test 12/24/18 17:13 12/24/18 21:05 12/25/18 07:29 12/25/18 10:05 Glucose (Fingerstick) 122 mg/dL (70-99) 140 mg/dL (70-99) 145 mg/dL (70-99) White Blood Count 13.8 x10^3/uL (4.0-11.0) Red Blood Count 5.22 x10^6/uL (4.30-5.70) Hemoglobin 11.6 g/dL (13.0-17.5) Hematocrit 38.1 % (39.0-53.0) Mean Corpuscular Volume 73 fL (79-100) Mean Corpuscular Hemoglobin 22 pg (25-35) Mean Corpuscular Hemoglobin Concent 30 g/dL (31-37) Red Cell Distribution Width 19.4 % (11.5-14.5) Platelet Count 279 x10^3/uL (140-400) Neutrophils (%) (Auto) 78 % (31-73) Lymphocytes (%) (Auto) 9 % (24-48) Monocytes (%) (Auto) 12 % (0-9) Eosinophils (%) (Auto) 1 % (0-3) Basophils (%) (Auto) 1 % (0-3) Neutrophils # (Auto) 10.8 x10^3uL (1.8-7.7) Lymphocytes # (Auto) 1.2 x10^3/uL (1.0-4.8) Monocytes # (Auto) 1.6 x10^3/uL (0.0-1.1) Eosinophils # (Auto) 0.1 x10^3/uL (0.0-0.7) Basophils # (Auto) 0.1 x10^3/uL (0.0-0.2) Platelet Estimate Adequate (ADEQUATE) Large Platelets Present Hypochromasia Present Anisocytosis Present Microcytosis Present Sodium Level 144 mmol/L (136-145) Potassium Level 3.6 mmol/L (3.5-5.1) Chloride Level 103 mmol/L (98-107) Carbon Dioxide Level 31 mmol/L (21-32) Anion Gap 10 (6-14) Blood Urea Nitrogen 17 mg/dL (8-26) Creatinine 0.8 mg/dL (0.7-1.3) Estimated GFR (Cockcroft-Gault) 97.6 BUN/Creatinine Ratio 21 (6-20) Glucose Level 153 mg/dL (70-99) Calcium Level 8.7 mg/dL (8.5-10.1) Total Bilirubin 0.4 mg/dL (0.2-1.0) Aspartate Amino Transf (AST/SGOT) 13 U/L (15-37) Alanine Aminotransferase (ALT/SGPT) 18 U/L (16-63) Alkaline Phosphatase 81 U/L (46-116) Total Protein 7.1 g/dL (6.4-8.2) Albumin 2.5 g/dL (3.4-5.0) Albumin/Globulin Ratio 0.5 (1.0-1.7) Test 12/25/18 11:26 Glucose (Fingerstick) 140 mg/dL (70-99) Problem List s/p colostomy takedown d/c NGT (minimal output) ANNI Johnson MD Dec 25, 2018 14:45
[2018-12-25 15:00] VITALS: BP 128/84
--- NOTE | 2018-12-25 15:43 | PDOC ---
PROGRESS NOTES Chief Complaint Chief Complaint status post colostomy takedown HTN, fairly controlled Hyperlipidemia History of Pulmonary embolus, chronic anticoagulation with coumadin GERD Cholelithiasis Osteoarthritis, Other (morbid obesity) Diabetes mellitus type 2 insulin requiring Venous dermatitis Plan: OOB to chair discontinue NGT as per attending oral care, biotene, resume Coumadin once approved by attending continue with thryroid medication in the am now that he has resumed the oral route. thank you for the consult. History of Present Illness History of Present Illness Patient in distress due to NG tube he wants it out. Reasruance provided, no other concerns other than trying to have his ng tube disocntinued Vitals Vitals Vital Signs Date Time Temp Pulse Resp B/P (MAP) Pulse Ox O2 Delivery O2 Flow Rate FiO2 12/25/18 11:00 97.9 102 20 125/84 (98) 93 Room Air 97.9 12/24/18 19:15 3.0 Physical Exam General: Alert, Oriented X3, Cooperative, No acute distress Heart: Regular rate, No murmurs Lungs: Clear Abdomen: Soft, No tenderness, Other (drain serosang, dressing intact) Extremities: No clubbing Skin: Other (warm, dry) Labs LABS Laboratory Tests Test 12/24/18 17:13 12/24/18 21:05 12/25/18 07:29 12/25/18 10:05 Glucose (Fingerstick) 122 mg/dL (70-99) 140 mg/dL (70-99) 145 mg/dL (70-99) White Blood Count 13.8 x10^3/uL (4.0-11.0) Red Blood Count 5.22 x10^6/uL (4.30-5.70) Hemoglobin 11.6 g/dL (13.0-17.5) Hematocrit 38.1 % (39.0-53.0) Mean Corpuscular Volume 73 fL (79-100) Mean Corpuscular Hemoglobin 22 pg (25-35) Mean Corpuscular Hemoglobin Concent 30 g/dL (31-37) Red Cell Distribution Width 19.4 % (11.5-14.5) Platelet Count 279 x10^3/uL (140-400) Neutrophils (%) (Auto) 78 % (31-73) Lymphocytes (%) (Auto) 9 % (24-48) Monocytes (%) (Auto) 12 % (0-9) Eosinophils (%) (Auto) 1 % (0-3) Basophils (%) (Auto) 1 % (0-3) Neutrophils # (Auto) 10.8 x10^3uL (1.8-7.7) Lymphocytes # (Auto) 1.2 x10^3/uL (1.0-4.8) Monocytes # (Auto) 1.6 x10^3/uL (0.0-1.1) Eosinophils # (Auto) 0.1 x10^3/uL (0.0-0.7) Basophils # (Auto) 0.1 x10^3/uL (0.0-0.2) Platelet Estimate Adequate (ADEQUATE) Large Platelets Present Hypochromasia Present Anisocytosis Present Microcytosis Present Sodium Level 144 mmol/L (136-145) Potassium Level 3.6 mmol/L (3.5-5.1) Chloride Level 103 mmol/L (98-107) Carbon Dioxide Level 31 mmol/L (21-32) Anion Gap 10 (6-14) Blood Urea Nitrogen 17 mg/dL (8-26) Creatinine 0.8 mg/dL (0.7-1.3) Estimated GFR (Cockcroft-Gault) 97.6 BUN/Creatinine Ratio 21 (6-20) Glucose Level 153 mg/dL (70-99) Calcium Level 8.7 mg/dL (8.5-10.1) Total Bilirubin 0.4 mg/dL (0.2-1.0) Aspartate Amino Transf (AST/SGOT) 13 U/L (15-37) Alanine Aminotransferase (ALT/SGPT) 18 U/L (16-63) Alkaline Phosphatase 81 U/L (46-116) Total Protein 7.1 g/dL (6.4-8.2) Albumin 2.5 g/dL (3.4-5.0) Albumin/Globulin Ratio 0.5 (1.0-1.7) Test 12/25/18 11:26 Glucose (Fingerstick) 140 mg/dL (70-99) Comment Review of Relevant I have reviewed the following items shannon (where applicable) has been applied. Labs Laboratory Tests Test 12/23/18 17:10 12/23/18 21:08 12/24/18 07:58 12/24/18 11:15 Glucose (Fingerstick) 113 mg/dL (70-99) 138 mg/dL (70-99) 107 mg/dL (70-99) 122 mg/dL (70-99) Test 12/24/18 17:13 12/24/18 21:05 12/25/18 07:29 12/25/18 10:05 Glucose (Fingerstick) 122 mg/dL (70-99) 140 mg/dL (70-99) 145 mg/dL (70-99) White Blood Count 13.8 x10^3/uL (4.0-11.0) Red Blood Count 5.22 x10^6/uL (4.30-5.70) Hemoglobin 11.6 g/dL (13.0-17.5) Hematocrit 38.1 % (39.0-53.0) Mean Corpuscular Volume 73 fL (79-100) Mean Corpuscular Hemoglobin 22 pg (25-35) Mean Corpuscular Hemoglobin Concent 30 g/dL (31-37) Red Cell Distribution Width 19.4 % (11.5-14.5) Platelet Count 279 x10^3/uL (140-400) Neutrophils (%) (Auto) 78 % (31-73) Lymphocytes (%) (Auto) 9 % (24-48) Monocytes (%) (Auto) 12 % (0-9) Eosinophils (%) (Auto) 1 % (0-3) Basophils (%) (Auto) 1 % (0-3) Neutrophils # (Auto) 10.8 x10^3uL (1.8-7.7) Lymphocytes # (Auto) 1.2 x10^3/uL (1.0-4.8) Monocytes # (Auto) 1.6 x10^3/uL (0.0-1.1) Eosinophils # (Auto) 0.1 x10^3/uL (0.0-0.7) Basophils # (Auto) 0.1 x10^3/uL (0.0-0.2) Platelet Estimate Adequate (ADEQUATE) Large Platelets Present Hypochromasia Present Anisocytosis Present Microcytosis Present Sodium Level 144 mmol/L (136-145) Potassium Level 3.6 mmol/L (3.5-5.1) Chloride Level 103 mmol/L (98-107) Carbon Dioxide Level 31 mmol/L (21-32) Anion Gap 10 (6-14) Blood Urea Nitrogen 17 mg/dL (8-26) Creatinine 0.8 mg/dL (0.7-1.3) Estimated GFR (Cockcroft-Gault) 97.6 BUN/Creatinine Ratio 21 (6-20) Glucose Level 153 mg/dL (70-99) Calcium Level 8.7 mg/dL (8.5-10.1) Total Bilirubin 0.4 mg/dL (0.2-1.0) Aspartate Amino Transf (AST/SGOT) 13 U/L (15-37) Alanine Aminotransferase (ALT/SGPT) 18 U/L (16-63) Alkaline Phosphatase 81 U/L (46-116) Total Protein 7.1 g/dL (6.4-8.2) Albumin 2.5 g/dL (3.4-5.0) Albumin/Globulin Ratio 0.5 (1.0-1.7) Test 12/25/18 11:26 Glucose (Fingerstick) 140 mg/dL (70-99) Laboratory Tests Test 12/24/18 17:13 12/24/18 21:05 12/25/18 07:29 12/25/18 10:05 Glucose (Fingerstick) 122 mg/dL (70-99) 140 mg/dL (70-99) 145 mg/dL (70-99) White Blood Count 13.8 x10^3/uL (4.0-11.0) Red Blood Count 5.22 x10^6/uL (4.30-5.70) Hemoglobin 11.6 g/dL (13.0-17.5) Hematocrit 38.1 % (39.0-53.0) Mean Corpuscular Volume 73 fL (79-100) Mean Corpuscular Hemoglobin 22 pg (25-35) Mean Corpuscular Hemoglobin Concent 30 g/dL (31-37) Red Cell Distribution Width 19.4 % (11.5-14.5) Platelet Count 279 x10^3/uL (140-400) Neutrophils (%) (Auto) 78 % (31-73) Lymphocytes (%) (Auto) 9 % (24-48) Monocytes (%) (Auto) 12 % (0-9) Eosinophils (%) (Auto) 1 % (0-3) Basophils (%) (Auto) 1 % (0-3) Neutrophils # (Auto) 10.8 x10^3uL (1.8-7.7) Lymphocytes # (Auto) 1.2 x10^3/uL (1.0-4.8) Monocytes # (Auto) 1.6 x10^3/uL (0.0-1.1) Eosinophils # (Auto) 0.1 x10^3/uL (0.0-0.7) Basophils # (Auto) 0.1 x10^3/uL (0.0-0.2) Platelet Estimate Adequate (ADEQUATE) Large Platelets Present Hypochromasia Present Anisocytosis Present Microcytosis Present Sodium Level 144 mmol/L (136-145) Potassium Level 3.6 mmol/L (3.5-5.1) Chloride Level 103 mmol/L (98-107) Carbon Dioxide Level 31 mmol/L (21-32) Anion Gap 10 (6-14) Blood Urea Nitrogen 17 mg/dL (8-26) Creatinine 0.8 mg/dL (0.7-1.3) Estimated GFR (Cockcroft-Gault) 97.6 BUN/Creatinine Ratio 21 (6-20) Glucose Level 153 mg/dL (70-99) Calcium Level 8.7 mg/dL (8.5-10.1) Total Bilirubin 0.4 mg/dL (0.2-1.0) Aspartate Amino Transf (AST/SGOT) 13 U/L (15-37) Alanine Aminotransferase (ALT/SGPT) 18 U/L (16-63) Alkaline Phosphatase 81 U/L (46-116) Total Protein 7.1 g/dL (6.4-8.2) Albumin 2.5 g/dL (3.4-5.0) Albumin/Globulin Ratio 0.5 (1.0-1.7) Test 12/25/18 11:26 Glucose (Fingerstick) 140 mg/dL (70-99) Medications Current Medications Ondansetron HCl (Zofran) 4 mg PRN Q6HRS PRN IV NAUSEA/VOMITING; Start 12/22/18 at 07:00; Stop 12/23/18 at 06:59; Status DC Fentanyl Citrate (Fentanyl 2ml Vial) 25 mcg PRN Q5MIN PRN IV MILD PAIN; Start 12/22/18 at 07:00; Stop 12/23/18 at 06:59; Status DC Fentanyl Citrate (Fentanyl 2ml Vial) 50 mcg PRN Q5MIN PRN IV MODERATE TO SEVERE PAIN; Start 12/22/18 at 07:00; Stop 12/23/18 at 06:59; Status DC Morphine Sulfate (Morphine Sulfate) 1 mg PRN Q10MIN PRN IV SEVERE PAIN; Start 12/22/18 at 07:00; Stop 12/23/18 at 06:59; Status DC Ringer's Solution 1,000 ml @ 30 mls/hr Q24H IV Last administered on 12/22/18at 16:02; Start 12/22/18 at 07:00; Stop 12/22/18 at 18:59; Status DC Lidocaine HCl (Xylocaine-Mpf 1% 2ml Vial) 2 ml PRN 1X PRN ID IV START; Start at 07:00; Stop 12/23/18 at 06:59; Status DC Hydromorphone HCl (Dilaudid) 0.5 mg PRN Q10MIN PRN IV SEV PAIN, Second choice Last administered on 12/22/18at 17:23; Start 12/22/18 at 07:00; Stop 12/23/18 at 06:59; Status DC Prochlorperazine Edisylate (Compazine) 5 mg PACU PRN PRN IV NAUSEA, MRX1 Last administered on 12/22/18at 16:03; Start 12/22/18 at 07:00; Stop 12/23/18 at 06:59 ; Status DC Cefoxitin Sodium (Mefoxin) 1 gm PREOP 1X IVP ; Start 12/22/18 at 06:00; Status Cancel Dextrose (Dextrose 50%-Water Syringe) 25 gm 1X ONCE IV Last administered on at 10:38; Start 12/22/18 at 10:15; Stop 12/22/18 at 10:16; Status DC Iohexol (Omnipaque 300 Mg/ml) 100 ml STK-MED ONCE .ROUTE ; Start 12/22/18 at 10: 45; Stop 12/22/18 at 10:46; Status DC Lidocaine HCl (Glydo (Lidocaine) Jelly) 6 enma STK-MED ONCE .ROUTE ; Start at 10:45; Stop 12/22/18 at 10:46; Status DC Lidocaine HCl (Glydo (Lidocaine) Jelly) 6 enma STK-MED ONCE .ROUTE ; Start at 10:45; Stop 12/22/18 at 10:46; Status Cancel Propofol 20 ml @ As Directed STK-MED ONCE IV ; Start 12/22/18 at 11:00; Stop at 11:01; Status DC Dexamethasone Sodium Phosphate (Decadron) 20 mg STK-MED ONCE .ROUTE ; Start at 11:00; Stop 12/22/18 at 11:01; Status DC Lidocaine HCl (Lidocaine Pf 2% Vial) 5 ml STK-MED ONCE .ROUTE ; Start 12/22/18 at 11:00; Stop 12/22/18 at 11:01; Status DC Ondansetron HCl (Zofran) 4 mg STK-MED ONCE .ROUTE ; Start 12/22/18 at 11:00; Stop 12/22/18 at 11:01; Status DC Rocuronium [place] (Zemuron) 50 mg STK-MED ONCE .ROUTE ; Start 12/22/18 at 11:00 ; Stop 12/22/18 at 11:01; Status DC Fentanyl Citrate (Fentanyl 2ml Vial) 100 mcg STK-MED ONCE .ROUTE ; Start at 11:00; Stop 12/22/18 at 11:01; Status DC Cefoxitin Sodium 2 gm/Dextrose 100 ml @ 200 mls/hr ONCE ONCE IV Last administered on 12/22/18at 11:46; Start 12/22/18 at 11:45; Stop 12/22/18 at 12:14 ; Status DC Ephedrine Sulfate (Akovaz) 50 mg STK-MED ONCE .ROUTE ; Start 12/22/18 at 11:56; Stop 12/22/18 at 11:57; Status DC Ephedrine Sulfate (Akovaz) 25 mg 1X ONCE IV ; Start 12/22/18 at 12:00; Stop at 12:01; Status DC Glycopyrrolate (Robinul) 1 mg STK-MED ONCE .ROUTE ; Start 12/22/18 at 11:59; Stop 12/22/18 at 12:00; Status DC Vasopressin (Vasostrict) 20 unit STK-MED ONCE .ROUTE ; Start 12/22/18 at 11:59; Stop 12/22/18 at 12:00; Status DC Rocuronium [place] (Zemuron) 50 mg STK-MED ONCE .ROUTE ; Start 12/22/18 at 12:06 ; Stop 12/22/18 at 12:07; Status DC Phenylephrine HCl (Craig-Synephrine Inj) 10 mg STK-MED ONCE .ROUTE ; Start at 12:15; Stop 12/22/18 at 12:16; Status DC Cefoxitin Sodium 2 gm/Dextrose 100 ml @ 200 mls/hr ONCE ONCE IV Last administered on 12/22/18at 13:55; Start 12/22/18 at 14:00; Stop 12/22/18 at 14:29 ; Status DC Albumin Human 500 ml @ As Directed STK-MED ONCE IV ; Start 12/22/18 at 14:35; Stop 12/22/18 at 14:36; Status DC Sevoflurane (Ultane) 90 ml STK-MED ONCE IH ; Start 12/22/18 at 15:03; Stop 12/22 at 15:04; Status DC Neostigmine Methylsulfate (Bloxiverz) 10 mg STK-MED ONCE .ROUTE ; Start at 15:03; Stop 12/22/18 at 15:04; Status DC Lidocaine HCl (Lidocaine Pf 2% Vial) 5 ml STK-MED ONCE .ROUTE ; Start 12/22/18 at 15:34; Stop 12/22/18 at 15:35; Status DC Morphine Sulfate (Morphine Sulfate) 10 mg STK-MED ONCE .ROUTE ; Start 12/22/18 at 15:42; Stop 12/22/18 at 15:43; Status DC Enoxaparin Sodium (Lovenox 40mg Syringe) 40 mg Q12HR SQ Last administered on at 08:15; Start 12/22/18 at 21:00 Sodium Chloride (Normal Saline Flush) 3 ml QSHIFT PRN IV AFTER MEDS AND BLOOD DRAWS; Start 12/22/18 at 16:30 Potassium Chloride/Sodium Chloride 1,000 ml @ 100 mls/hr Q10H IV Last administered on 12/24/18at 08:38; Start 12/22/18 at 18:00; Stop 12/24/18 at 14:26 ; Status DC Hydromorphone HCl 30 ml @ 0 mls/hr CONT PRN PRN IV PER PROTOCOL Last administered on 12/25/18at 09:24; Start 12/22/18 at 16:30 Ondansetron HCl (Zofran) 4 mg PRN Q6HRS PRN IV NAUESA, 1ST CHOICE Last administered on 12/24/18at 15:29; Start 12/22/18 at 16:30 Throat Lozenges (Chloraseptic) 1 spray PRN Q2HR PRN PO SORE THROAT 2ND CHOICE; Start 12/22/18 at 16:30 Throat Lozenges (Cepacol Sore Throat Lozenge) 1 sridhar PRN Q2HRS PRN PO SORE THROAT 1ST CHOICE; Start 12/22/18 at 16:30 Naloxone HCl (Narcan) 0.4 mg PRN Q2MIN PRN IV SEE COMMENTS; Start 12/22/18 at 17:00 Cefoxitin Sodium 100 ml @ As Directed STK-MED ONCE IV ; Start 12/22/18 at 11:32 ; Stop 12/23/18 at 10:40; Status DC Throat Lozenges (Cepacol Sore Throat Lozenge) 1 sridhar PRN Q2HRS PRN PO SORE THROAT; Start 12/24/18 at 11:15; Status UNV Saliva Substitute (Biotene Moisturizing Mouth) 2 spray PRN Q15MIN PRN PO DRY MOUTH Last administered on 12/25/18at 08:15; Start 12/24/18 at 11:15 Levothyroxine Sodium 50 mcg/ Sodium Chloride 5 ml @ 100 mls/hr DAILY IVP ; Start 12/24/18 at 14:30; Stop 12/26/18 at 09:15; Status UNV Insulin Human Lispro (HumaLOG) 0-9 UNITS TIDWMEALS SQ ; Start 12/24/18 at 17:00 Dextrose (Dextrose 50%-Water Syringe) 12.5 gm PRN Q15MIN PRN IV SEE COMMENTS; Start 12/24/18 at 14:30 Potassium Chloride/Dextrose/ Sod Cl 1,000 ml @ 100 mls/hr Q10H IV Last administered on 12/25/18at 09:33; Start 12/24/18 at 14:30 Insulin Glargine (Lantus) 10 units DAILY SQ ; Start 12/24/18 at 15:00; Stop at 15:37; Status DC Insulin Glargine (Lantus) 10 units HS SQ Last administered on 12/24/18at 21:49; Start 12/24/18 at 21:00 Active Scripts Active Morphine Sulfate Er (Morphine Sulfate) 30 Mg Tablet.er 60 Mg PO BID 30 Days Reported Gabapentin 600 Mg Tablet 300 Mg PO BID Lasix (Furosemide) 40 Mg Tablet 1 Tab PO DAILY Glimepiride 4 Mg Tablet 1 Tab PO BID Bystolic (Nebivolol Hcl) 20 Mg Tablet 20 Mg PO DAILY Levothyroxine Sodium 50 Mcg Tablet 75 Mcg PO DAILY Warfarin Sodium 6 Mg Tablet 6 Mg PO DAILY Metformin Hcl 1,000 Mg Tablet 1 Tab PO BID Losartan-Hctz 100-12.5 Mg Tab (Losartan/Hydrochlorothiazide) 1 Each Tablet 1 Tab PO DAILY Vitals/I & O Vital Sign - Last 24 Hours 12/24/18 12/24/18 12/24/18 12/25/18 19:15 19:55 23:00 03:02 Temp 97.3 98.0 98.1 97.3 98.0 98.1 Pulse 74 91 94 Resp 18 20 20 18 B/P (MAP) 121/66 (84) 108/62 (77) 134/74 (94) Pulse Ox 95 94 94 O2 Delivery Nasal Cannula Room Air Room Air Room Air O2 Flow Rate 3.0 12/25/18 12/25/18 12/25/18 12/25/18 07:00 08:10 09:24 09:57 Temp 97.8 97.8 Pulse 80 Resp 20 B/P (MAP) 147/82 (103) Pulse Ox 90 90 O2 Delivery Room Air Room Air Room Air Room Air 12/25/18 11:00 Temp 97.9 97.9 Pulse 102 Resp 20 B/P (MAP) 125/84 (98) Pulse Ox 93 O2 Delivery Room Air Intake and Output 12/24/18 12/24/18 12/25/18 15:00 23:00 07:00 Intake Total 1936 ml Output Total 1790 ml 1100 ml 4405 ml Balance -1790 ml -1100 ml -2469 ml SABRINA INFANTE MD Dec 25, 2018 15:43
[2018-12-25 19:00] VITALS: BP 145/77
[2018-12-25] MEDS: INSULIN GLARGINE 300 UNITS/3 ML INSULN.PEN. SQ SCH (21:26)
[2018-12-25 23:00] VITALS: BP 167/87
[2018-12-26] VITALS (7 sets, daily range): BP systolic 136–157; BP diastolic 70–93
[2018-12-26] MEDS: HYDROmorphone 12mg/30ml PCA 30 ML IV PRN ×2 (00:59→16:30)
[2018-12-26] MEDS: ONDANSETRON PF 4 MG/2 ML VIAL. IV PRN ×2 (06:42→22:09)
[2018-12-26] MEDS: POTASSIUM CL 20MEQ D5-0.45NACL 1,000 ML IV SCH ×3 (07:35→22:20)
[2018-12-26] MEDS: INSULIN LISPRO 300 UNITS/3 ML INSULN.PEN. SQ SCH ×3 (08:00→17:00)
[2018-12-26] MEDS: ENOXAPARIN 40 MG/0.4 ML SYRINGE. SQ SCH ×2 (08:40→22:03)
--- NOTE | 2018-12-26 13:58 | PDOC ---
PROGRESS NOTES Chief Complaint Chief Complaint status post colostomy takedown HTN, fairly controlled Hyperlipidemia History of Pulmonary embolus, chronic anticoagulation with coumadin GERD Cholelithiasis Osteoarthritis, obesity, BMI 48 Diabetes mellitus type 2 insulin requiring Venous dermatitis History of Present Illness History of Present Illness OOB to chair now on clears, advance diet if flatus to stool pt and OT plan to resume coumadin Vitals Vitals Vital Signs Date Time Temp Pulse Resp B/P (MAP) Pulse Ox O2 Delivery O2 Flow Rate FiO2 12/26/18 11:00 98.0 78 18 136/78 (97) 95 Room Air 98.0 Physical Exam General: Alert, Oriented X3, Cooperative, No acute distress Heart: Regular rate, No murmurs Lungs: Clear Abdomen: Soft, No tenderness, Other (drain serosang, dressing intact) Extremities: No clubbing Skin: Other (warm, dry) Labs LABS Laboratory Tests Test 12/25/18 16:54 12/25/18 21:08 12/26/18 07:33 12/26/18 11:12 Glucose (Fingerstick) 141 mg/dL (70-99) 140 mg/dL (70-99) 123 mg/dL (70-99) 146 mg/dL (70-99) Comment Review of Relevant I have reviewed the following items shannon (where applicable) has been applied. Labs Laboratory Tests Test 12/24/18 17:13 12/24/18 21:05 12/25/18 07:29 12/25/18 10:05 Glucose (Fingerstick) 122 mg/dL (70-99) 140 mg/dL (70-99) 145 mg/dL (70-99) White Blood Count 13.8 x10^3/uL (4.0-11.0) Red Blood Count 5.22 x10^6/uL (4.30-5.70) Hemoglobin 11.6 g/dL (13.0-17.5) Hematocrit 38.1 % (39.0-53.0) Mean Corpuscular Volume 73 fL (79-100) Mean Corpuscular Hemoglobin 22 pg (25-35) Mean Corpuscular Hemoglobin Concent 30 g/dL (31-37) Red Cell Distribution Width 19.4 % (11.5-14.5) Platelet Count 279 x10^3/uL (140-400) Neutrophils (%) (Auto) 78 % (31-73) Lymphocytes (%) (Auto) 9 % (24-48) Monocytes (%) (Auto) 12 % (0-9) Eosinophils (%) (Auto) 1 % (0-3) Basophils (%) (Auto) 1 % (0-3) Neutrophils # (Auto) 10.8 x10^3uL (1.8-7.7) Lymphocytes # (Auto) 1.2 x10^3/uL (1.0-4.8) Monocytes # (Auto) 1.6 x10^3/uL (0.0-1.1) Eosinophils # (Auto) 0.1 x10^3/uL (0.0-0.7) Basophils # (Auto) 0.1 x10^3/uL (0.0-0.2) Platelet Estimate Adequate (ADEQUATE) Large Platelets Present Hypochromasia Present Anisocytosis Present Microcytosis Present Sodium Level 144 mmol/L (136-145) Potassium Level 3.6 mmol/L (3.5-5.1) Chloride Level 103 mmol/L (98-107) Carbon Dioxide Level 31 mmol/L (21-32) Anion Gap 10 (6-14) Blood Urea Nitrogen 17 mg/dL (8-26) Creatinine 0.8 mg/dL (0.7-1.3) Estimated GFR (Cockcroft-Gault) 97.6 BUN/Creatinine Ratio 21 (6-20) Glucose Level 153 mg/dL (70-99) Calcium Level 8.7 mg/dL (8.5-10.1) Total Bilirubin 0.4 mg/dL (0.2-1.0) Aspartate Amino Transf (AST/SGOT) 13 U/L (15-37) Alanine Aminotransferase (ALT/SGPT) 18 U/L (16-63) Alkaline Phosphatase 81 U/L (46-116) Total Protein 7.1 g/dL (6.4-8.2) Albumin 2.5 g/dL (3.4-5.0) Albumin/Globulin Ratio 0.5 (1.0-1.7) Test 12/25/18 11:26 12/25/18 16:54 12/25/18 21:08 12/26/18 07:33 Glucose (Fingerstick) 140 mg/dL (70-99) 141 mg/dL (70-99) 140 mg/dL (70-99) 123 mg/dL (70-99) Test 12/26/18 11:12 Glucose (Fingerstick) 146 mg/dL (70-99) Laboratory Tests Test 12/25/18 16:54 12/25/18 21:08 12/26/18 07:33 12/26/18 11:12 Glucose (Fingerstick) 141 mg/dL (70-99) 140 mg/dL (70-99) 123 mg/dL (70-99) 146 mg/dL (70-99) Medications Current Medications Ondansetron HCl (Zofran) 4 mg PRN Q6HRS PRN IV NAUSEA/VOMITING; Start 12/22/18 at 07:00; Stop 12/23/18 at 06:59; Status DC Fentanyl Citrate (Fentanyl 2ml Vial) 25 mcg PRN Q5MIN PRN IV MILD PAIN; Start 12/22/18 at 07:00; Stop 12/23/18 at 06:59; Status DC Fentanyl Citrate (Fentanyl 2ml Vial) 50 mcg PRN Q5MIN PRN IV MODERATE TO SEVERE PAIN; Start 12/22/18 at 07:00; Stop 12/23/18 at 06:59; Status DC Morphine Sulfate (Morphine Sulfate) 1 mg PRN Q10MIN PRN IV SEVERE PAIN; Start 12/22/18 at 07:00; Stop 12/23/18 at 06:59; Status DC Ringer's Solution 1,000 ml @ 30 mls/hr Q24H IV Last administered on 12/22/18at 16:02; Start 12/22/18 at 07:00; Stop 12/22/18 at 18:59; Status DC Lidocaine HCl (Xylocaine-Mpf 1% 2ml Vial) 2 ml PRN 1X PRN ID IV START; Start at 07:00; Stop 12/23/18 at 06:59; Status DC Hydromorphone HCl (Dilaudid) 0.5 mg PRN Q10MIN PRN IV SEV PAIN, Second choice Last administered on 12/22/18at 17:23; Start 12/22/18 at 07:00; Stop 12/23/18 at 06:59; Status DC Prochlorperazine Edisylate (Compazine) 5 mg PACU PRN PRN IV NAUSEA, MRX1 Last administered on 12/22/18at 16:03; Start 12/22/18 at 07:00; Stop 12/23/18 at 06:59 ; Status DC Cefoxitin Sodium (Mefoxin) 1 gm PREOP 1X IVP ; Start 12/22/18 at 06:00; Status Cancel Dextrose (Dextrose 50%-Water Syringe) 25 gm 1X ONCE IV Last administered on at 10:38; Start 12/22/18 at 10:15; Stop 12/22/18 at 10:16; Status DC Iohexol (Omnipaque 300 Mg/ml) 100 ml STK-MED ONCE .ROUTE ; Start 12/22/18 at 10: 45; Stop 12/22/18 at 10:46; Status DC Lidocaine HCl (Glydo (Lidocaine) Jelly) 6 enma STK-MED ONCE .ROUTE ; Start at 10:45; Stop 12/22/18 at 10:46; Status DC Lidocaine HCl (Glydo (Lidocaine) Jelly) 6 enma STK-MED ONCE .ROUTE ; Start at 10:45; Stop 12/22/18 at 10:46; Status Cancel Propofol 20 ml @ As Directed STK-MED ONCE IV ; Start 12/22/18 at 11:00; Stop at 11:01; Status DC Dexamethasone Sodium Phosphate (Decadron) 20 mg STK-MED ONCE .ROUTE ; Start at 11:00; Stop 12/22/18 at 11:01; Status DC Lidocaine HCl (Lidocaine Pf 2% Vial) 5 ml STK-MED ONCE .ROUTE ; Start 12/22/18 at 11:00; Stop 12/22/18 at 11:01; Status DC Ondansetron HCl (Zofran) 4 mg STK-MED ONCE .ROUTE ; Start 12/22/18 at 11:00; Stop 12/22/18 at 11:01; Status DC Rocuronium [place] (Zemuron) 50 mg STK-MED ONCE .ROUTE ; Start 12/22/18 at 11:00 ; Stop 12/22/18 at 11:01; Status DC Fentanyl Citrate (Fentanyl 2ml Vial) 100 mcg STK-MED ONCE .ROUTE ; Start at 11:00; Stop 12/22/18 at 11:01; Status DC Cefoxitin Sodium 2 gm/Dextrose 100 ml @ 200 mls/hr ONCE ONCE IV Last administered on 12/22/18at 11:46; Start 12/22/18 at 11:45; Stop 12/22/18 at 12:14 ; Status DC Ephedrine Sulfate (Akovaz) 50 mg STK-MED ONCE .ROUTE ; Start 12/22/18 at 11:56; Stop 12/22/18 at 11:57; Status DC Ephedrine Sulfate (Akovaz) 25 mg 1X ONCE IV ; Start 12/22/18 at 12:00; Stop at 12:01; Status DC Glycopyrrolate (Robinul) 1 mg STK-MED ONCE .ROUTE ; Start 12/22/18 at 11:59; Stop 12/22/18 at 12:00; Status DC Vasopressin (Vasostrict) 20 unit STK-MED ONCE .ROUTE ; Start 12/22/18 at 11:59; Stop 12/22/18 at 12:00; Status DC Rocuronium [place] (Zemuron) 50 mg STK-MED ONCE .ROUTE ; Start 12/22/18 at 12:06 ; Stop 12/22/18 at 12:07; Status DC Phenylephrine HCl (Craig-Synephrine Inj) 10 mg STK-MED ONCE .ROUTE ; Start at 12:15; Stop 12/22/18 at 12:16; Status DC Cefoxitin Sodium 2 gm/Dextrose 100 ml @ 200 mls/hr ONCE ONCE IV Last administered on 12/22/18at 13:55; Start 12/22/18 at 14:00; Stop 12/22/18 at 14:29 ; Status DC Albumin Human 500 ml @ As Directed STK-MED ONCE IV ; Start 12/22/18 at 14:35; Stop 12/22/18 at 14:36; Status DC Sevoflurane (Ultane) 90 ml STK-MED ONCE IH ; Start 12/22/18 at 15:03; Stop 12/22 at 15:04; Status DC Neostigmine Methylsulfate (Bloxiverz) 10 mg STK-MED ONCE .ROUTE ; Start at 15:03; Stop 12/22/18 at 15:04; Status DC Lidocaine HCl (Lidocaine Pf 2% Vial) 5 ml STK-MED ONCE .ROUTE ; Start 12/22/18 at 15:34; Stop 12/22/18 at 15:35; Status DC Morphine Sulfate (Morphine Sulfate) 10 mg STK-MED ONCE .ROUTE ; Start 12/22/18 at 15:42; Stop 12/22/18 at 15:43; Status DC Enoxaparin Sodium (Lovenox 40mg Syringe) 40 mg Q12HR SQ Last administered on at 08:40; Start 12/22/18 at 21:00 Sodium Chloride (Normal Saline Flush) 3 ml QSHIFT PRN IV AFTER MEDS AND BLOOD DRAWS; Start 12/22/18 at 16:30 Potassium Chloride/Sodium Chloride 1,000 ml @ 100 mls/hr Q10H IV Last administered on 12/24/18at 08:38; Start 12/22/18 at 18:00; Stop 12/24/18 at 14:26 ; Status DC Hydromorphone HCl 30 ml @ 0 mls/hr CONT PRN PRN IV PER PROTOCOL Last administered on 12/26/18at 00:59; Start 12/22/18 at 16:30 Ondansetron HCl (Zofran) 4 mg PRN Q6HRS PRN IV NAUESA, 1ST CHOICE Last administered on 12/26/18at 06:42; Start 12/22/18 at 16:30 Throat Lozenges (Chloraseptic) 1 spray PRN Q2HR PRN PO SORE THROAT 2ND CHOICE; Start 12/22/18 at 16:30 Throat Lozenges (Cepacol Sore Throat Lozenge) 1 sridhar PRN Q2HRS PRN PO SORE THROAT 1ST CHOICE; Start 12/22/18 at 16:30 Naloxone HCl (Narcan) 0.4 mg PRN Q2MIN PRN IV SEE COMMENTS; Start 12/22/18 at 17:00 Cefoxitin Sodium 100 ml @ As Directed STK-MED ONCE IV ; Start 12/22/18 at 11:32 ; Stop 12/23/18 at 10:40; Status DC Throat Lozenges (Cepacol Sore Throat Lozenge) 1 sridhar PRN Q2HRS PRN PO SORE THROAT; Start 12/24/18 at 11:15; Status UNV Saliva Substitute (Biotene Moisturizing Mouth) 2 spray PRN Q15MIN PRN PO DRY MOUTH Last administered on 12/25/18at 08:15; Start 12/24/18 at 11:15 Levothyroxine Sodium 50 mcg/ Sodium Chloride 5 ml @ 100 mls/hr DAILY IVP ; Start 12/24/18 at 14:30; Stop 12/26/18 at 09:15; Status UNV Insulin Human Lispro (HumaLOG) 0-9 UNITS TIDWMEALS SQ ; Start 12/24/18 at 17:00 Dextrose (Dextrose 50%-Water Syringe) 12.5 gm PRN Q15MIN PRN IV SEE COMMENTS; Start 12/24/18 at 14:30 Potassium Chloride/Dextrose/ Sod Cl 1,000 ml @ 100 mls/hr Q10H IV Last administered on 12/26/18at 07:35; Start 12/24/18 at 14:30 Insulin Glargine (Lantus) 10 units DAILY SQ ; Start 12/24/18 at 15:00; Stop at 15:37; Status DC Insulin Glargine (Lantus) 10 units HS SQ Last administered on 12/25/18at 21:26; Start 12/24/18 at 21:00 Active Scripts Active Morphine Sulfate Er (Morphine Sulfate) 30 Mg Tablet.er 60 Mg PO BID 30 Days Reported Gabapentin 600 Mg Tablet 300 Mg PO BID Lasix (Furosemide) 40 Mg Tablet 1 Tab PO DAILY Glimepiride 4 Mg Tablet 1 Tab PO BID Bystolic (Nebivolol Hcl) 20 Mg Tablet 20 Mg PO DAILY Levothyroxine Sodium 50 Mcg Tablet 75 Mcg PO DAILY Warfarin Sodium 6 Mg Tablet 6 Mg PO DAILY Metformin Hcl 1,000 Mg Tablet 1 Tab PO BID Losartan-Hctz 100-12.5 Mg Tab (Losartan/Hydrochlorothiazide) 1 Each Tablet 1 Tab PO DAILY Vitals/I & O Vital Sign - Last 24 Hours 12/25/18 12/25/18 12/25/18 12/25/18 15:00 19:00 20:15 23:00 Temp 97.4 98.0 97.7 97.4 98.0 97.7 Pulse 100 75 77 Resp 20 20 20 B/P (MAP) 128/84 (99) 145/77 (99) 167/87 (113) Pulse Ox 91 92 92 O2 Delivery Room Air Room Air Room Air Room Air 12/26/18 12/26/18 12/26/18 12/26/18 00:16 00:59 01:29 03:00 Temp 97.5 97.5 Pulse 72 71 Resp 20 B/P (MAP) 157/93 (114) 150/88 (108) Pulse Ox 92 O2 Delivery Room Air Room Air Room Air 12/26/18 12/26/18 07:00 11:00 Temp 97.9 98.0 97.9 98.0 Pulse 69 78 Resp 18 18 B/P (MAP) 147/76 (99) 136/78 (97) Pulse Ox 96 95 O2 Delivery Room Air Room Air Intake and Output 12/25/18 12/25/18 12/26/18 15:00 23:00 07:00 Intake Total 0 ml Output Total 300 ml 480 ml Balance -300 ml -480 ml KAREN ROY MD Dec 26, 2018 13:58
--- NOTE | 2018-12-26 14:07 | PDOC ---
SURGICAL PROGRESS NOTE Subjective Pt without c/o, feels better everyday, piter clears, passing some flatus, ambulating Vital Signs Vital Signs Date Time Temp Pulse Resp B/P (MAP) Pulse Ox O2 Delivery O2 Flow Rate FiO2 12/26/18 11:00 98.0 78 18 136/78 (97) 95 Room Air 98.0 I&O Intake and Output 12/26/18 07:00 Intake Total 0 ml Output Total 780 ml Balance -780 ml Intake Oral 0 ml Output Urine Total 460 ml Gastric Drainage Total 300 ml Drainage Total 20 ml # Voids 2 General: Alert, Oriented X3, Cooperative, No acute distress Abdomen: Soft, No tenderness, Other (dressing intact, FAM serosang) Labs Laboratory Tests Test 12/24/18 17:13 12/24/18 21:05 12/25/18 07:29 12/25/18 10:05 Glucose (Fingerstick) 122 mg/dL (70-99) 140 mg/dL (70-99) 145 mg/dL (70-99) White Blood Count 13.8 x10^3/uL (4.0-11.0) Red Blood Count 5.22 x10^6/uL (4.30-5.70) Hemoglobin 11.6 g/dL (13.0-17.5) Hematocrit 38.1 % (39.0-53.0) Mean Corpuscular Volume 73 fL (79-100) Mean Corpuscular Hemoglobin 22 pg (25-35) Mean Corpuscular Hemoglobin Concent 30 g/dL (31-37) Red Cell Distribution Width 19.4 % (11.5-14.5) Platelet Count 279 x10^3/uL (140-400) Neutrophils (%) (Auto) 78 % (31-73) Lymphocytes (%) (Auto) 9 % (24-48) Monocytes (%) (Auto) 12 % (0-9) Eosinophils (%) (Auto) 1 % (0-3) Basophils (%) (Auto) 1 % (0-3) Neutrophils # (Auto) 10.8 x10^3uL (1.8-7.7) Lymphocytes # (Auto) 1.2 x10^3/uL (1.0-4.8) Monocytes # (Auto) 1.6 x10^3/uL (0.0-1.1) Eosinophils # (Auto) 0.1 x10^3/uL (0.0-0.7) Basophils # (Auto) 0.1 x10^3/uL (0.0-0.2) Platelet Estimate Adequate (ADEQUATE) Large Platelets Present Hypochromasia Present Anisocytosis Present Microcytosis Present Sodium Level 144 mmol/L (136-145) Potassium Level 3.6 mmol/L (3.5-5.1) Chloride Level 103 mmol/L (98-107) Carbon Dioxide Level 31 mmol/L (21-32) Anion Gap 10 (6-14) Blood Urea Nitrogen 17 mg/dL (8-26) Creatinine 0.8 mg/dL (0.7-1.3) Estimated GFR (Cockcroft-Gault) 97.6 BUN/Creatinine Ratio 21 (6-20) Glucose Level 153 mg/dL (70-99) Calcium Level 8.7 mg/dL (8.5-10.1) Total Bilirubin 0.4 mg/dL (0.2-1.0) Aspartate Amino Transf (AST/SGOT) 13 U/L (15-37) Alanine Aminotransferase (ALT/SGPT) 18 U/L (16-63) Alkaline Phosphatase 81 U/L (46-116) Total Protein 7.1 g/dL (6.4-8.2) Albumin 2.5 g/dL (3.4-5.0) Albumin/Globulin Ratio 0.5 (1.0-1.7) Test 12/25/18 11:26 12/25/18 16:54 12/25/18 21:08 12/26/18 07:33 Glucose (Fingerstick) 140 mg/dL (70-99) 141 mg/dL (70-99) 140 mg/dL (70-99) 123 mg/dL (70-99) Test 12/26/18 11:12 Glucose (Fingerstick) 146 mg/dL (70-99) Laboratory Tests Test 12/25/18 16:54 12/25/18 21:08 12/26/18 07:33 12/26/18 11:12 Glucose (Fingerstick) 141 mg/dL (70-99) 140 mg/dL (70-99) 123 mg/dL (70-99) 146 mg/dL (70-99) Problem List s/p colostomy takedown cont clears await improved bowel fxn ANNI BLOOD MD Dec 26, 2018 14:07
[2018-12-26] MEDS: INSULIN GLARGINE 300 UNITS/3 ML INSULN.PEN. SQ SCH (22:06)
[2018-12-27 03:00] VITALS: BP 151/86
[2018-12-27 07:00] VITALS: BP 158/84
[2018-12-27] MEDS: INSULIN LISPRO 300 UNITS/3 ML INSULN.PEN. SQ SCH ×3 (08:00→17:00)
[2018-12-27] MEDS ORDERED: oxyCODONE/APAP 5/325 1 TAB TABLET PO PRN (08:15)
[2018-12-27] MEDS ORDERED: MAGNESIUM HYDROXIDE 2,400 MG/30 ML ORAL.SUSP. PO PRN (08:15)
[2018-12-27] MEDS ORDERED: POLYETHYLENE GLYCOL 3350 17 GM PACKET. PO PRN (08:15)
[2018-12-27] MEDS: ONDANSETRON PF 4 MG/2 ML VIAL. IV PRN (08:38)
[2018-12-27] MEDS: ENOXAPARIN 40 MG/0.4 ML SYRINGE. SQ SCH ×2 (08:42→20:55)
[2018-12-27] MEDS: DOCUSATE SODIUM 100 MG CAPSULE. PO SCH (08:45)
[2018-12-27 09:07] LABS: BASO # 0.1 x10^3/uL (0.0-0.2); BASO % 1 % (0-3); EOS # 0.4 x10^3/uL (0.0-0.7); EOS % 4 % (0-3); HEMATOCRIT 37.3 % (39.0-53.0); HEMOGLOBIN 11.4 g/dL (13.0-17.5); LYMPH # 1.4 x10^3/uL (1.0-4.8); LYMPH % 14 % (24-48); MEAN CORPUSCULAR HEMOGLOBIN 22 pg (25-35); MEAN CORPUSCULAR HGB CONC 30 g/dL (31-37); MEAN CORPUSCULAR VOLUME 73 fL (79-100); MONO # 0.8 x10^3/uL (0.0-1.1); MONO % 8 % (0-9); NEUT # 6.9 x10^3uL (1.8-7.7); NEUT % 73 % (31-73); PLATELET COUNT 268 x10^3/uL (140-400); RED CELL DISTRIBUTION WIDTH 19.5 % (11.5-14.5); WHITE BLOOD COUNT 9.5 x10^3/uL (4.0-11.0)
--- NOTE | 2018-12-27 09:23 | PDOC ---
SURGICAL PROGRESS NOTE Subjective tolerating clears + flatus ambulating Vital Signs Vital Signs Date Time Temp Pulse Resp B/P (MAP) Pulse Ox O2 Delivery O2 Flow Rate FiO2 12/27/18 07:00 98.0 71 16 158/84 (108) 95 Room Air 98.0 I&O Intake and Output 12/27/18 06:59 Intake Total 1727 ml Output Total 980 ml Balance 747 ml Intake Oral 1700 ml IV Total 27 ml Output Urine Total 900 ml Drainage Total 80 ml # Voids 1 General: Alert, Oriented X3, Cooperative, No acute distress Abdomen: Soft, Other (ND, dressing dry, rupert serous ) Labs Laboratory Tests Test 12/25/18 10:05 12/25/18 11:26 12/25/18 16:54 12/25/18 21:08 White Blood Count 13.8 x10^3/uL (4.0-11.0) Red Blood Count 5.22 x10^6/uL (4.30-5.70) Hemoglobin 11.6 g/dL (13.0-17.5) Hematocrit 38.1 % (39.0-53.0) Mean Corpuscular Volume 73 fL (79-100) Mean Corpuscular Hemoglobin 22 pg (25-35) Mean Corpuscular Hemoglobin Concent 30 g/dL (31-37) Red Cell Distribution Width 19.4 % (11.5-14.5) Platelet Count 279 x10^3/uL (140-400) Neutrophils (%) (Auto) 78 % (31-73) Lymphocytes (%) (Auto) 9 % (24-48) Monocytes (%) (Auto) 12 % (0-9) Eosinophils (%) (Auto) 1 % (0-3) Basophils (%) (Auto) 1 % (0-3) Neutrophils # (Auto) 10.8 x10^3uL (1.8-7.7) Lymphocytes # (Auto) 1.2 x10^3/uL (1.0-4.8) Monocytes # (Auto) 1.6 x10^3/uL (0.0-1.1) Eosinophils # (Auto) 0.1 x10^3/uL (0.0-0.7) Basophils # (Auto) 0.1 x10^3/uL (0.0-0.2) Platelet Estimate Adequate (ADEQUATE) Large Platelets Present Hypochromasia Present Anisocytosis Present Microcytosis Present Sodium Level 144 mmol/L (136-145) Potassium Level 3.6 mmol/L (3.5-5.1) Chloride Level 103 mmol/L (98-107) Carbon Dioxide Level 31 mmol/L (21-32) Anion Gap 10 (6-14) Blood Urea Nitrogen 17 mg/dL (8-26) Creatinine 0.8 mg/dL (0.7-1.3) Estimated GFR (Cockcroft-Gault) 97.6 BUN/Creatinine Ratio 21 (6-20) Glucose Level 153 mg/dL (70-99) Calcium Level 8.7 mg/dL (8.5-10.1) Total Bilirubin 0.4 mg/dL (0.2-1.0) Aspartate Amino Transf (AST/SGOT) 13 U/L (15-37) Alanine Aminotransferase (ALT/SGPT) 18 U/L (16-63) Alkaline Phosphatase 81 U/L (46-116) Total Protein 7.1 g/dL (6.4-8.2) Albumin 2.5 g/dL (3.4-5.0) Albumin/Globulin Ratio 0.5 (1.0-1.7) Glucose (Fingerstick) 140 mg/dL (70-99) 141 mg/dL (70-99) 140 mg/dL (70-99) Test 12/26/18 07:33 12/26/18 11:12 12/26/18 16:37 12/26/18 20:58 Glucose (Fingerstick) 123 mg/dL (70-99) 146 mg/dL (70-99) 122 mg/dL (70-99) 165 mg/dL (70-99) Test 12/27/18 08:07 12/27/18 08:45 Glucose (Fingerstick) 121 mg/dL (70-99) White Blood Count 9.5 x10^3/uL (4.0-11.0) Red Blood Count 5.10 x10^6/uL (4.30-5.70) Hemoglobin 11.4 g/dL (13.0-17.5) Hematocrit 37.3 % (39.0-53.0) Mean Corpuscular Volume 73 fL (79-100) Mean Corpuscular Hemoglobin 22 pg (25-35) Mean Corpuscular Hemoglobin Concent 30 g/dL (31-37) Red Cell Distribution Width 19.5 % (11.5-14.5) Platelet Count 268 x10^3/uL (140-400) Neutrophils (%) (Auto) 73 % (31-73) Lymphocytes (%) (Auto) 14 % (24-48) Monocytes (%) (Auto) 8 % (0-9) Eosinophils (%) (Auto) 4 % (0-3) Basophils (%) (Auto) 1 % (0-3) Neutrophils # (Auto) 6.9 x10^3uL (1.8-7.7) Lymphocytes # (Auto) 1.4 x10^3/uL (1.0-4.8) Monocytes # (Auto) 0.8 x10^3/uL (0.0-1.1) Eosinophils # (Auto) 0.4 x10^3/uL (0.0-0.7) Basophils # (Auto) 0.1 x10^3/uL (0.0-0.2) Laboratory Tests Test 12/26/18 11:12 12/26/18 16:37 12/26/18 20:58 12/27/18 08:07 Glucose (Fingerstick) 146 mg/dL (70-99) 122 mg/dL (70-99) 165 mg/dL (70-99) 121 mg/dL (70-99) Test 12/27/18 08:45 White Blood Count 9.5 x10^3/uL (4.0-11.0) Red Blood Count 5.10 x10^6/uL (4.30-5.70) Hemoglobin 11.4 g/dL (13.0-17.5) Hematocrit 37.3 % (39.0-53.0) Mean Corpuscular Volume 73 fL (79-100) Mean Corpuscular Hemoglobin 22 pg (25-35) Mean Corpuscular Hemoglobin Concent 30 g/dL (31-37) Red Cell Distribution Width 19.5 % (11.5-14.5) Platelet Count 268 x10^3/uL (140-400) Neutrophils (%) (Auto) 73 % (31-73) Lymphocytes (%) (Auto) 14 % (24-48) Monocytes (%) (Auto) 8 % (0-9) Eosinophils (%) (Auto) 4 % (0-3) Basophils (%) (Auto) 1 % (0-3) Neutrophils # (Auto) 6.9 x10^3uL (1.8-7.7) Lymphocytes # (Auto) 1.4 x10^3/uL (1.0-4.8) Monocytes # (Auto) 0.8 x10^3/uL (0.0-1.1) Eosinophils # (Auto) 0.4 x10^3/uL (0.0-0.7) Basophils # (Auto) 0.1 x10^3/uL (0.0-0.2) Assessment/Plan advance to full liquids if tolerates, work toward resume home pain meds and dc telephonic rn tomorrow 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 APRN Dec 27, 2018 09:23
[2018-12-27 09:30] LABS: CALCIUM 8.5 mg/dL (8.5-10.1); CREATININE 0.6 mg/dL (0.7-1.3); GFR 136.1; POTASSIUM 3.8 mmol/L (3.5-5.1)
--- NOTE | 2018-12-27 09:52 | PDOC ---
PROGRESS NOTES Chief Complaint Chief Complaint status post colostomy takedown ( indwelling 3 months) for diverticulitis episode HTN, Hyperlipidemia History of Pulmonary embolus, chronic anticoagulation with coumadin GERD Cholelithiasis Osteoarthritis, obesity, BMI 48 Diabetes mellitus type 2 insulin requiring Venous dermatitis History of Present Illness History of Present Illness He has no complaints Has been tolerating a liquid diet He claims he is getting out of bed He is on the AIRLINE STEWARDESS pump for procedure of colostomy takedown and has been on it for the past 5 days Agreeable to stop the AIRLINE STEWARDESS, as long as we resume his home regimen which is MS Contin 30 twice a day NO Bowel movement Plan: DC AIRLINE STEWARDESS Stat potassium now-result is 3.8 DC AIRLINE STEWARDESS, DC K containing IVF Start MS Contin 30 twice a day Start Percocet 10 PRN May advance to GI soft Continue to ambulate ad miriam. [facility] home tomorrow dw RN Vitals Vitals Vital Signs Date Time Temp Pulse Resp B/P (MAP) Pulse Ox O2 Delivery O2 Flow Rate FiO2 12/27/18 07:00 98.0 71 16 158/84 (108) 95 Room Air 98.0 Physical Exam General: Alert, Oriented X3, Cooperative, No acute distress Heart: Regular rate, Normal S1, Normal S2, No murmurs Lungs: Clear Abdomen: Normal bowel sounds, Soft, Other (ND, dressing dry, rupert serous ) Extremities: No clubbing, No cyanosis Skin: No rashes, No breakdown, Other (warm, dry) Labs LABS Laboratory Tests Test 12/26/18 11:12 12/26/18 16:37 12/26/18 20:58 12/27/18 08:07 Glucose (Fingerstick) 146 mg/dL (70-99) 122 mg/dL (70-99) 165 mg/dL (70-99) 121 mg/dL (70-99) Test 12/27/18 08:45 White Blood Count 9.5 x10^3/uL (4.0-11.0) Red Blood Count 5.10 x10^6/uL (4.30-5.70) Hemoglobin 11.4 g/dL (13.0-17.5) Hematocrit 37.3 % (39.0-53.0) Mean Corpuscular Volume 73 fL (79-100) Mean Corpuscular Hemoglobin 22 pg (25-35) Mean Corpuscular Hemoglobin Concent 30 g/dL (31-37) Red Cell Distribution Width 19.5 % (11.5-14.5) Platelet Count 268 x10^3/uL (140-400) Neutrophils (%) (Auto) 73 % (31-73) Lymphocytes (%) (Auto) 14 % (24-48) Monocytes (%) (Auto) 8 % (0-9) Eosinophils (%) (Auto) 4 % (0-3) Basophils (%) (Auto) 1 % (0-3) Neutrophils # (Auto) 6.9 x10^3uL (1.8-7.7) Lymphocytes # (Auto) 1.4 x10^3/uL (1.0-4.8) Monocytes # (Auto) 0.8 x10^3/uL (0.0-1.1) Eosinophils # (Auto) 0.4 x10^3/uL (0.0-0.7) Basophils # (Auto) 0.1 x10^3/uL (0.0-0.2) Sodium Level 137 mmol/L (136-145) Potassium Level 3.8 mmol/L (3.5-5.1) Chloride Level 101 mmol/L (98-107) Carbon Dioxide Level 29 mmol/L (21-32) Anion Gap 7 (6-14) Blood Urea Nitrogen 11 mg/dL (8-26) Creatinine 0.6 mg/dL (0.7-1.3) Estimated GFR (Cockcroft-Gault) 136.1 Glucose Level 155 mg/dL (70-99) Calcium Level 8.5 mg/dL (8.5-10.1) Review of Systems Review of Systems Constipated, the rest of ROS 14 point negative Comment Review of Relevant I have reviewed the following items shannon (where applicable) has been applied. Labs Laboratory Tests Test 12/25/18 10:05 12/25/18 11:26 12/25/18 16:54 12/25/18 21:08 White Blood Count 13.8 x10^3/uL (4.0-11.0) Red Blood Count 5.22 x10^6/uL (4.30-5.70) Hemoglobin 11.6 g/dL (13.0-17.5) Hematocrit 38.1 % (39.0-53.0) Mean Corpuscular Volume 73 fL (79-100) Mean Corpuscular Hemoglobin 22 pg (25-35) Mean Corpuscular Hemoglobin Concent 30 g/dL (31-37) Red Cell Distribution Width 19.4 % (11.5-14.5) Platelet Count 279 x10^3/uL (140-400) Neutrophils (%) (Auto) 78 % (31-73) Lymphocytes (%) (Auto) 9 % (24-48) Monocytes (%) (Auto) 12 % (0-9) Eosinophils (%) (Auto) 1 % (0-3) Basophils (%) (Auto) 1 % (0-3) Neutrophils # (Auto) 10.8 x10^3uL (1.8-7.7) Lymphocytes # (Auto) 1.2 x10^3/uL (1.0-4.8) Monocytes # (Auto) 1.6 x10^3/uL (0.0-1.1) Eosinophils # (Auto) 0.1 x10^3/uL (0.0-0.7) Basophils # (Auto) 0.1 x10^3/uL (0.0-0.2) Platelet Estimate Adequate (ADEQUATE) Large Platelets Present Hypochromasia Present Anisocytosis Present Microcytosis Present Sodium Level 144 mmol/L (136-145) Potassium Level 3.6 mmol/L (3.5-5.1) Chloride Level 103 mmol/L (98-107) Carbon Dioxide Level 31 mmol/L (21-32) Anion Gap 10 (6-14) Blood Urea Nitrogen 17 mg/dL (8-26) Creatinine 0.8 mg/dL (0.7-1.3) Estimated GFR (Cockcroft-Gault) 97.6 BUN/Creatinine Ratio 21 (6-20) Glucose Level 153 mg/dL (70-99) Calcium Level 8.7 mg/dL (8.5-10.1) Total Bilirubin 0.4 mg/dL (0.2-1.0) Aspartate Amino Transf (AST/SGOT) 13 U/L (15-37) Alanine Aminotransferase (ALT/SGPT) 18 U/L (16-63) Alkaline Phosphatase 81 U/L (46-116) Total Protein 7.1 g/dL (6.4-8.2) Albumin 2.5 g/dL (3.4-5.0) Albumin/Globulin Ratio 0.5 (1.0-1.7) Glucose (Fingerstick) 140 mg/dL (70-99) 141 mg/dL (70-99) 140 mg/dL (70-99) Test 12/26/18 07:33 12/26/18 11:12 12/26/18 16:37 12/26/18 20:58 Glucose (Fingerstick) 123 mg/dL (70-99) 146 mg/dL (70-99) 122 mg/dL (70-99) 165 mg/dL (70-99) Test 12/27/18 08:07 12/27/18 08:45 Glucose (Fingerstick) 121 mg/dL (70-99) White Blood Count 9.5 x10^3/uL (4.0-11.0) Red Blood Count 5.10 x10^6/uL (4.30-5.70) Hemoglobin 11.4 g/dL (13.0-17.5) Hematocrit 37.3 % (39.0-53.0) Mean Corpuscular Volume 73 fL (79-100) Mean Corpuscular Hemoglobin 22 pg (25-35) Mean Corpuscular Hemoglobin Concent 30 g/dL (31-37) Red Cell Distribution Width 19.5 % (11.5-14.5) Platelet Count 268 x10^3/uL (140-400) Neutrophils (%) (Auto) 73 % (31-73) Lymphocytes (%) (Auto) 14 % (24-48) Monocytes (%) (Auto) 8 % (0-9) Eosinophils (%) (Auto) 4 % (0-3) Basophils (%) (Auto) 1 % (0-3) Neutrophils # (Auto) 6.9 x10^3uL (1.8-7.7) Lymphocytes # (Auto) 1.4 x10^3/uL (1.0-4.8) Monocytes # (Auto) 0.8 x10^3/uL (0.0-1.1) Eosinophils # (Auto) 0.4 x10^3/uL (0.0-0.7) Basophils # (Auto) 0.1 x10^3/uL (0.0-0.2) Sodium Level 137 mmol/L (136-145) Potassium Level 3.8 mmol/L (3.5-5.1) Chloride Level 101 mmol/L (98-107) Carbon Dioxide Level 29 mmol/L (21-32) Anion Gap 7 (6-14) Blood Urea Nitrogen 11 mg/dL (8-26) Creatinine 0.6 mg/dL (0.7-1.3) Estimated GFR (Cockcroft-Gault) 136.1 Glucose Level 155 mg/dL (70-99) Calcium Level 8.5 mg/dL (8.5-10.1) Laboratory Tests Test 12/26/18 11:12 12/26/18 16:37 12/26/18 20:58 12/27/18 08:07 Glucose (Fingerstick) 146 mg/dL (70-99) 122 mg/dL (70-99) 165 mg/dL (70-99) 121 mg/dL (70-99) Test 12/27/18 08:45 White Blood Count 9.5 x10^3/uL (4.0-11.0) Red Blood Count 5.10 x10^6/uL (4.30-5.70) Hemoglobin 11.4 g/dL (13.0-17.5) Hematocrit 37.3 % (39.0-53.0) Mean Corpuscular Volume 73 fL (79-100) Mean Corpuscular Hemoglobin 22 pg (25-35) Mean Corpuscular Hemoglobin Concent 30 g/dL (31-37) Red Cell Distribution Width 19.5 % (11.5-14.5) Platelet Count 268 x10^3/uL (140-400) Neutrophils (%) (Auto) 73 % (31-73) Lymphocytes (%) (Auto) 14 % (24-48) Monocytes (%) (Auto) 8 % (0-9) Eosinophils (%) (Auto) 4 % (0-3) Basophils (%) (Auto) 1 % (0-3) Neutrophils # (Auto) 6.9 x10^3uL (1.8-7.7) Lymphocytes # (Auto) 1.4 x10^3/uL (1.0-4.8) Monocytes # (Auto) 0.8 x10^3/uL (0.0-1.1) Eosinophils # (Auto) 0.4 x10^3/uL (0.0-0.7) Basophils # (Auto) 0.1 x10^3/uL (0.0-0.2) Sodium Level 137 mmol/L (136-145) Potassium Level 3.8 mmol/L (3.5-5.1) Chloride Level 101 mmol/L (98-107) Carbon Dioxide Level 29 mmol/L (21-32) Anion Gap 7 (6-14) Blood Urea Nitrogen 11 mg/dL (8-26) Creatinine 0.6 mg/dL (0.7-1.3) Estimated GFR (Cockcroft-Gault) 136.1 Glucose Level 155 mg/dL (70-99) Calcium Level 8.5 mg/dL (8.5-10.1) Medications Current Medications Ondansetron HCl (Zofran) 4 mg PRN Q6HRS PRN IV NAUSEA/VOMITING; Start 12/22/18 at 07:00; Stop 12/23/18 at 06:59; Status DC Fentanyl Citrate (Fentanyl 2ml Vial) 25 mcg PRN Q5MIN PRN IV MILD PAIN; Start 12/22/18 at 07:00; Stop 12/23/18 at 06:59; Status DC Fentanyl Citrate (Fentanyl 2ml Vial) 50 mcg PRN Q5MIN PRN IV MODERATE TO SEVERE PAIN; Start 12/22/18 at 07:00; Stop 12/23/18 at 06:59; Status DC Morphine Sulfate (Morphine Sulfate) 1 mg PRN Q10MIN PRN IV SEVERE PAIN; Start 12/22/18 at 07:00; Stop 12/23/18 at 06:59; Status DC Ringer's Solution 1,000 ml @ 30 mls/hr Q24H IV Last administered on 12/22/18at 16:02; Start 12/22/18 at 07:00; Stop 12/22/18 at 18:59; Status DC Lidocaine HCl (Xylocaine-Mpf 1% 2ml Vial) 2 ml PRN 1X PRN ID IV START; Start at 07:00; Stop 12/23/18 at 06:59; Status DC Hydromorphone HCl (Dilaudid) 0.5 mg PRN Q10MIN PRN IV SEV PAIN, Second choice Last administered on 12/22/18at 17:23; Start 12/22/18 at 07:00; Stop 12/23/18 at 06:59; Status DC Prochlorperazine Edisylate (Compazine) 5 mg PACU PRN PRN IV NAUSEA, MRX1 Last administered on 12/22/18at 16:03; Start 12/22/18 at 07:00; Stop 12/23/18 at 06:59 ; Status DC Cefoxitin Sodium (Mefoxin) 1 gm PREOP 1X IVP ; Start 12/22/18 at 06:00; Status Cancel Dextrose (Dextrose 50%-Water Syringe) 25 gm 1X ONCE IV Last administered on at 10:38; Start 12/22/18 at 10:15; Stop 12/22/18 at 10:16; Status DC Iohexol (Omnipaque 300 Mg/ml) 100 ml STK-MED ONCE .ROUTE ; Start 12/22/18 at 10: 45; Stop 12/22/18 at 10:46; Status DC Lidocaine HCl (Glydo (Lidocaine) Jelly) 6 enma STK-MED ONCE .ROUTE ; Start at 10:45; Stop 12/22/18 at 10:46; Status DC Lidocaine HCl (Glydo (Lidocaine) Jelly) 6 enma STK-MED ONCE .ROUTE ; Start at 10:45; Stop 12/22/18 at 10:46; Status Cancel Propofol 20 ml @ As Directed STK-MED ONCE IV ; Start 12/22/18 at 11:00; Stop at 11:01; Status DC Dexamethasone Sodium Phosphate (Decadron) 20 mg STK-MED ONCE .ROUTE ; Start at 11:00; Stop 12/22/18 at 11:01; Status DC Lidocaine HCl (Lidocaine Pf 2% Vial) 5 ml STK-MED ONCE .ROUTE ; Start 12/22/18 at 11:00; Stop 12/22/18 at 11:01; Status DC Ondansetron HCl (Zofran) 4 mg STK-MED ONCE .ROUTE ; Start 12/22/18 at 11:00; Stop 12/22/18 at 11:01; Status DC Rocuronium [place] (Zemuron) 50 mg STK-MED ONCE .ROUTE ; Start 12/22/18 at 11:00 ; Stop 12/22/18 at 11:01; Status DC Fentanyl Citrate (Fentanyl 2ml Vial) 100 mcg STK-MED ONCE .ROUTE ; Start at 11:00; Stop 12/22/18 at 11:01; Status DC Cefoxitin Sodium 2 gm/Dextrose 100 ml @ 200 mls/hr ONCE ONCE IV Last administered on 12/22/18at 11:46; Start 12/22/18 at 11:45; Stop 12/22/18 at 12:14 ; Status DC Ephedrine Sulfate (Akovaz) 50 mg STK-MED ONCE .ROUTE ; Start 12/22/18 at 11:56; Stop 12/22/18 at 11:57; Status DC Ephedrine Sulfate (Akovaz) 25 mg 1X ONCE IV ; Start 12/22/18 at 12:00; Stop at 12:01; Status DC Glycopyrrolate (Robinul) 1 mg STK-MED ONCE .ROUTE ; Start 12/22/18 at 11:59; Stop 12/22/18 at 12:00; Status DC Vasopressin (Vasostrict) 20 unit STK-MED ONCE .ROUTE ; Start 12/22/18 at 11:59; Stop 12/22/18 at 12:00; Status DC Rocuronium [place] (Zemuron) 50 mg STK-MED ONCE .ROUTE ; Start 12/22/18 at 12:06 ; Stop 12/22/18 at 12:07; Status DC Phenylephrine HCl (Craig-Synephrine Inj) 10 mg STK-MED ONCE .ROUTE ; Start at 12:15; Stop 12/22/18 at 12:16; Status DC Cefoxitin Sodium 2 gm/Dextrose 100 ml @ 200 mls/hr ONCE ONCE IV Last administered on 12/22/18at 13:55; Start 12/22/18 at 14:00; Stop 12/22/18 at 14:29 ; Status DC Albumin Human 500 ml @ As Directed STK-MED ONCE IV ; Start 12/22/18 at 14:35; Stop 12/22/18 at 14:36; Status DC Sevoflurane (Ultane) 90 ml STK-MED ONCE IH ; Start 12/22/18 at 15:03; Stop 12/22 at 15:04; Status DC Neostigmine Methylsulfate (Bloxiverz) 10 mg STK-MED ONCE .ROUTE ; Start at 15:03; Stop 12/22/18 at 15:04; Status DC Lidocaine HCl (Lidocaine Pf 2% Vial) 5 ml STK-MED ONCE .ROUTE ; Start 12/22/18 at 15:34; Stop 12/22/18 at 15:35; Status DC Morphine Sulfate (Morphine Sulfate) 10 mg STK-MED ONCE .ROUTE ; Start 12/22/18 at 15:42; Stop 12/22/18 at 15:43; Status DC Enoxaparin Sodium (Lovenox 40mg Syringe) 40 mg Q12HR SQ Last administered on at 08:42; Start 12/22/18 at 21:00 Sodium Chloride (Normal Saline Flush) 3 ml QSHIFT PRN IV AFTER MEDS AND BLOOD DRAWS; Start 12/22/18 at 16:30 Potassium Chloride/Sodium Chloride 1,000 ml @ 100 mls/hr Q10H IV Last administered on 12/24/18at 08:38; Start 12/22/18 at 18:00; Stop 12/24/18 at 14:26 ; Status DC Hydromorphone HCl 30 ml @ 0 mls/hr CONT PRN PRN IV PER PROTOCOL Last administered on 12/26/18at 16:30; Start 12/22/18 at 16:30; Stop 12/27/18 at 08:08 ; Status DC Ondansetron HCl (Zofran) 4 mg PRN Q6HRS PRN IV NAUESA, 1ST CHOICE Last administered on 12/27/18at 08:38; Start 12/22/18 at 16:30 Throat Lozenges (Chloraseptic) 1 spray PRN Q2HR PRN PO SORE THROAT 2ND CHOICE; Start 12/22/18 at 16:30 Throat Lozenges (Cepacol Sore Throat Lozenge) 1 sridhar PRN Q2HRS PRN PO SORE THROAT 1ST CHOICE; Start 12/22/18 at 16:30 Naloxone HCl (Narcan) 0.4 mg PRN Q2MIN PRN IV SEE COMMENTS; Start 12/22/18 at 17:00 Cefoxitin Sodium 100 ml @ As Directed STK-MED ONCE IV ; Start 12/22/18 at 11:32 ; Stop 12/23/18 at 10:40; Status DC Throat Lozenges (Cepacol Sore Throat Lozenge) 1 sridhar PRN Q2HRS PRN PO SORE THROAT; Start 12/24/18 at 11:15; Status UNV Saliva Substitute (Biotene Moisturizing Mouth) 2 spray PRN Q15MIN PRN PO DRY MOUTH Last administered on 12/25/18at 08:15; Start 12/24/18 at 11:15 Levothyroxine Sodium 50 mcg/ Sodium Chloride 5 ml @ 100 mls/hr DAILY IVP ; Start 12/24/18 at 14:30; Stop 12/26/18 at 09:15; Status UNV Insulin Human Lispro (HumaLOG) 0-9 UNITS TIDWMEALS SQ ; Start 12/24/18 at 17:00 Dextrose (Dextrose 50%-Water Syringe) 12.5 gm PRN Q15MIN PRN IV SEE COMMENTS; Start 12/24/18 at 14:30 Potassium Chloride/Dextrose/ Sod Cl 1,000 ml @ 100 mls/hr Q10H IV Last administered on 12/26/18at 22:20; Start 12/24/18 at 14:30; Stop 12/27/18 at 08:08 ; Status DC Insulin Glargine (Lantus) 10 units DAILY SQ ; Start 12/24/18 at 15:00; Stop at 15:37; Status DC Insulin Glargine (Lantus) 10 units HS SQ Last administered on 12/26/18at 22:06; Start 12/24/18 at 21:00 Oxycodone/ Acetaminophen (Percocet 5/325) 1 tab PRN Q4HRS PRN PO MODERATE PAIN ; Start 12/27/18 at 08:15 Oxycodone/ Acetaminophen (Percocet 10/325) 1 tab PRN Q4HRS PRN PO SEVERE PAIN; Start 12/27/18 at 08:15 Docusate Sodium (Colace) 100 mg DAILY PO Last administered on 12/27/18at 08:45; Start 12/27/18 at 09:00 Polyethylene Glycol (miraLAX PACKET) 17 gm PRN DAILY PRN PO CONSTIPATION; Start 12/27/18 at 08:15 Magnesium Hydroxide (Milk Of Magnesia) 2,400 mg PRN DAILY PRN PO CONSTIPATION; Start 12/27/18 at 08:15 Active Scripts Active Morphine Sulfate Er (Morphine Sulfate) 30 Mg Tablet.er 60 Mg PO BID 30 Days Reported Gabapentin 600 Mg Tablet 300 Mg PO BID Lasix (Furosemide) 40 Mg Tablet 1 Tab PO DAILY Glimepiride 4 Mg Tablet 1 Tab PO BID Bystolic (Nebivolol Hcl) 20 Mg Tablet 20 Mg PO DAILY Levothyroxine Sodium 50 Mcg Tablet 75 Mcg PO DAILY Warfarin Sodium 6 Mg Tablet 6 Mg PO DAILY Metformin Hcl 1,000 Mg Tablet 1 Tab PO BID Losartan-Hctz 100-12.5 Mg Tab (Losartan/Hydrochlorothiazide) 1 Each Tablet 1 Tab PO DAILY Vitals/I & O Vital Sign - Last 24 Hours 12/26/18 12/26/18 12/26/18 12/26/18 11:00 15:00 16:30 17:03 Temp 98.0 97.6 98.0 97.6 Pulse 78 65 Resp 18 18 B/P (MAP) 136/78 (97) 139/70 (93) Pulse Ox 95 95 95 95 O2 Delivery Room Air Room Air Room Air Room Air 12/26/18 12/26/18 12/26/18 12/27/18 19:00 19:48 23:00 03:00 Temp 98.1 97.5 97.9 98.1 97.5 97.9 Pulse 70 71 68 Resp 18 18 18 B/P (MAP) 154/90 (111) 141/75 (97) 151/86 (107) Pulse Ox 95 94 96 O2 Delivery Room Air Room Air Room Air Room Air 12/27/18 07:00 Temp 98.0 98.0 Pulse 71 Resp 16 B/P (MAP) 158/84 (108) Pulse Ox 95 O2 Delivery Room Air Intake and Output 12/26/18 12/26/18 12/27/18 14:59 22:59 06:59 Intake Total 1100 ml 627 ml Output Total 450 ml 530 ml Balance 650 ml 627 ml -530 ml ROULA CANSECO MD Dec 27, 2018 09:52
[2018-12-27] MEDS ORDERED: MORPHINE ER 30 MG TABLET.ER PO SCH (10:00)
--- NOTE | 2018-12-27 10:00 | NUR ---
Pt's VULCANIZER OPERATOR stopped at 0945, pt history showed pt had pushed VULCANIZER OPERATOR button 3 times, administering 3 doses for a total of 0.9mg at 0945.
[2018-12-27 10:14] LABS: PROTHROMBIN TIME PATIENT 14.1 SEC (11.7-14.0)
[2018-12-27 11:00] VITALS: BP 115/75
[2018-12-27] MEDS: fentaNYL PF VIAL 100 MCG/2 ML VIAL IV PRN ×3 (11:18→19:28)
--- NOTE | 2018-12-27 14:06 | NUR ---
Pharmacy Warfarin Dosing Note S:Pharmacy consulted to assist with anticoagulation therapy started with target INR: 2 -3 O:LAZ INIGUEZ is a 63 year old M with DVT/PE LABS: Last INR: 1.1 Last HGB: Last HCT: Last PLT: 268 Last dose of Hold given on at Previous Regimen: 6MG AT HOME FOR HX DVT Vitamin K given: Drug Interaction Changes: Ongoing Drug Interactions: A:INR of 1.1 is below desired range. Target range for this patient is: 2 -3 P: Warfarin dose: 7.5 mg Today at 1600 Bridge Therapy: Enoxaparin 40 mg q12h Next INR due IN AM Pharmacy anticoagulation service will continue to follow. BO KHAN [facility], 12/27/18 [id number]
[2018-12-27] MEDS: rOPINIRole 0.25 MG TABLET. PO SCH ×2 (14:58→20:50)
[2018-12-27 15:00] VITALS: BP 118/76
[2018-12-27] MEDS ORDERED: WARFARIN 7.5 MG TABLET. PO ONE (16:00)
[2018-12-27] MEDS: oxyCODONE/APAP 10/325 1 TAB TABLET PO PRN (17:32)
[2018-12-27 19:00] VITALS: BP 145/82
[2018-12-27] MEDS: MORPHINE ER 30 MG TABLET.ER PO SCH (20:50)
[2018-12-27] MEDS: INSULIN GLARGINE 300 UNITS/3 ML INSULN.PEN. SQ SCH (21:00)
[2018-12-27] MEDS ORDERED: diphenhydrAMINE HCL 25 MG CAPSULE PO PRN (21:30)
[2018-12-27 23:00] VITALS: BP 145/83
[2018-12-28] MEDS: fentaNYL PF VIAL 100 MCG/2 ML VIAL IV PRN ×3 (00:25→07:44)
[2018-12-28 02:58] VITALS: BP 155/93
[2018-12-28 06:25] LABS: PROTHROMBIN TIME PATIENT 14.5 SEC (11.7-14.0)
[2018-12-28 07:00] VITALS: BP 136/89
[2018-12-28] MEDS: DOCUSATE SODIUM 100 MG CAPSULE. PO SCH (07:44)
[2018-12-28] MEDS: rOPINIRole 0.25 MG TABLET. PO SCH ×3 (07:44→20:39)
[2018-12-28] MEDS: INSULIN LISPRO 300 UNITS/3 ML INSULN.PEN. SQ SCH ×3 (07:45→17:00)
[2018-12-28] MEDS: MORPHINE ER 30 MG TABLET.ER PO SCH ×2 (07:45→20:39)
[2018-12-28] MEDS: ENOXAPARIN 40 MG/0.4 ML SYRINGE. SQ SCH ×2 (07:45→20:39)
--- NOTE | 2018-12-28 09:57 | PDOC ---
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 PASTEURIZER 12/28/18 0957: SURGICAL PROGRESS NOTE Subjective tolerating diet reports he can not navigate stairs at home -he wants rehab Vital Signs Vital Signs Date Time Temp Pulse Resp B/P (MAP) Pulse Ox O2 Delivery O2 Flow Rate FiO2 12/28/18 07:53 Room Air 12/28/18 07:00 97.9 84 18 136/89 (105) 95 97.9 I&O Intake and Output 12/28/18 06:59 Output Total 1350 ml Balance -1350 ml Output Urine Total 1150 ml Drainage Total 200 ml # Bowel Movements 4 General: Alert, Oriented X3, Cooperative, No acute distress Abdomen: Soft, Other (drain serousang, dressings dry) Labs Laboratory Tests Test 12/26/18 11:12 12/26/18 16:37 12/26/18 20:58 12/27/18 08:07 Glucose (Fingerstick) 146 mg/dL (70-99) 122 mg/dL (70-99) 165 mg/dL (70-99) 121 mg/dL (70-99) Test 12/27/18 08:45 12/27/18 11:25 12/27/18 16:46 12/27/18 20:56 White Blood Count 9.5 x10^3/uL (4.0-11.0) Red Blood Count 5.10 x10^6/uL (4.30-5.70) Hemoglobin 11.4 g/dL (13.0-17.5) Hematocrit 37.3 % (39.0-53.0) Mean Corpuscular Volume 73 fL (79-100) Mean Corpuscular Hemoglobin 22 pg (25-35) Mean Corpuscular Hemoglobin Concent 30 g/dL (31-37) Red Cell Distribution Width 19.5 % (11.5-14.5) Platelet Count 268 x10^3/uL (140-400) Neutrophils (%) (Auto) 73 % (31-73) Lymphocytes (%) (Auto) 14 % (24-48) Monocytes (%) (Auto) 8 % (0-9) Eosinophils (%) (Auto) 4 % (0-3) Basophils (%) (Auto) 1 % (0-3) Neutrophils # (Auto) 6.9 x10^3uL (1.8-7.7) Lymphocytes # (Auto) 1.4 x10^3/uL (1.0-4.8) Monocytes # (Auto) 0.8 x10^3/uL (0.0-1.1) Eosinophils # (Auto) 0.4 x10^3/uL (0.0-0.7) Basophils # (Auto) 0.1 x10^3/uL (0.0-0.2) Prothrombin Time 14.1 SEC (11.7-14.0) Prothromb Time International Ratio 1.1 (0.8-1.1) Sodium Level 137 mmol/L (136-145) Potassium Level 3.8 mmol/L (3.5-5.1) Chloride Level 101 mmol/L (98-107) Carbon Dioxide Level 29 mmol/L (21-32) Anion Gap 7 (6-14) Blood Urea Nitrogen 11 mg/dL (8-26) Creatinine 0.6 mg/dL (0.7-1.3) Estimated GFR (Cockcroft-Gault) 136.1 Glucose Level 155 mg/dL (70-99) Calcium Level 8.5 mg/dL (8.5-10.1) Glucose (Fingerstick) 172 mg/dL (70-99) 150 mg/dL (70-99) 155 mg/dL (70-99) Test 12/28/18 05:26 12/28/18 07:41 Prothrombin Time 14.5 SEC (11.7-14.0) Prothromb Time International Ratio 1.2 (0.8-1.1) Glucose (Fingerstick) 117 mg/dL (70-99) Laboratory Tests Test 12/27/18 11:25 12/27/18 16:46 12/27/18 20:56 12/28/18 05:26 Glucose (Fingerstick) 172 mg/dL (70-99) 150 mg/dL (70-99) 155 mg/dL (70-99) Prothrombin Time 14.5 SEC (11.7-14.0) Prothromb Time International Ratio 1.2 (0.8-1.1) Test 12/28/18 07:41 Glucose (Fingerstick) 117 mg/dL (70-99) Assessment/Plan will consult SW--dc planning, possible rehab if qualifies ANNIE HARRIS MD 12/28/18 1346: SURGICAL PROGRESS NOTE Assessment/Plan pt seen says he can't walk steps and has two flights to go up to get into his house rehab eval PND back on home meds, I stopped other narcotic pain meds 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 APRN Dec 28, 2018 09:57 ANNIE HARRIS MD Dec 28, 2018 13:46
--- NOTE | 2018-12-28 09:59 | PDOC ---
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 I restart his home medication MS Contin 60 twice a day and we did verify this with his pharmacy He is asking for his home gabapentin- I have restarted that too He is tolerating a GI soft PT worked with him yesterday and recommended home health Patient adamantly is requesting SNU he claims he has steps at home Discussed with PT they will reassess again today I have also reached out to social work/case mx regarding the issue Plan: PT to evaluate again today Cleared from GS to go home Follow-up GS as instructed Pain medicine on discharge will be on chart Vitals Vitals Vital Signs Date Time Temp Pulse Resp B/P (MAP) Pulse Ox O2 Delivery O2 Flow Rate FiO2 12/28/18 07:53 Room Air 12/28/18 07:00 97.9 84 18 136/89 (105) 95 97.9 Physical Exam General: Alert, Oriented X3, Cooperative, No acute distress Heart: Regular rate, Normal S1, Normal S2, No murmurs Lungs: Clear Abdomen: Normal bowel sounds, Soft, Other (ND, dressing dry, rupert serous ) Extremities: No clubbing, No cyanosis Skin: No rashes, No breakdown, Other (warm, dry) Labs LABS Laboratory Tests Test 12/27/18 11:25 12/27/18 16:46 12/27/18 20:56 12/28/18 05:26 Glucose (Fingerstick) 172 mg/dL (70-99) 150 mg/dL (70-99) 155 mg/dL (70-99) Prothrombin Time 14.5 SEC (11.7-14.0) Prothromb Time International Ratio 1.2 (0.8-1.1) Test 12/28/18 07:41 Glucose (Fingerstick) 117 mg/dL (70-99) Review of Systems Review of Systems claims weak, wants one more day - otherwise limited ROS 14 pt bec of preoccupance with pain meds Comment Review of Relevant I have reviewed the following items shannon (where applicable) has been applied. Labs Laboratory Tests Test 12/26/18 11:12 12/26/18 16:37 12/26/18 20:58 12/27/18 08:07 Glucose (Fingerstick) 146 mg/dL (70-99) 122 mg/dL (70-99) 165 mg/dL (70-99) 121 mg/dL (70-99) Test 12/27/18 08:45 12/27/18 11:25 12/27/18 16:46 12/27/18 20:56 White Blood Count 9.5 x10^3/uL (4.0-11.0) Red Blood Count 5.10 x10^6/uL (4.30-5.70) Hemoglobin 11.4 g/dL (13.0-17.5) Hematocrit 37.3 % (39.0-53.0) Mean Corpuscular Volume 73 fL (79-100) Mean Corpuscular Hemoglobin 22 pg (25-35) Mean Corpuscular Hemoglobin Concent 30 g/dL (31-37) Red Cell Distribution Width 19.5 % (11.5-14.5) Platelet Count 268 x10^3/uL (140-400) Neutrophils (%) (Auto) 73 % (31-73) Lymphocytes (%) (Auto) 14 % (24-48) Monocytes (%) (Auto) 8 % (0-9) Eosinophils (%) (Auto) 4 % (0-3) Basophils (%) (Auto) 1 % (0-3) Neutrophils # (Auto) 6.9 x10^3uL (1.8-7.7) Lymphocytes # (Auto) 1.4 x10^3/uL (1.0-4.8) Monocytes # (Auto) 0.8 x10^3/uL (0.0-1.1) Eosinophils # (Auto) 0.4 x10^3/uL (0.0-0.7) Basophils # (Auto) 0.1 x10^3/uL (0.0-0.2) Prothrombin Time 14.1 SEC (11.7-14.0) Prothromb Time International Ratio 1.1 (0.8-1.1) Sodium Level 137 mmol/L (136-145) Potassium Level 3.8 mmol/L (3.5-5.1) Chloride Level 101 mmol/L (98-107) Carbon Dioxide Level 29 mmol/L (21-32) Anion Gap 7 (6-14) Blood Urea Nitrogen 11 mg/dL (8-26) Creatinine 0.6 mg/dL (0.7-1.3) Estimated GFR (Cockcroft-Gault) 136.1 Glucose Level 155 mg/dL (70-99) Calcium Level 8.5 mg/dL (8.5-10.1) Glucose (Fingerstick) 172 mg/dL (70-99) 150 mg/dL (70-99) 155 mg/dL (70-99) Test 12/28/18 05:26 12/28/18 07:41 Prothrombin Time 14.5 SEC (11.7-14.0) Prothromb Time International Ratio 1.2 (0.8-1.1) Glucose (Fingerstick) 117 mg/dL (70-99) Laboratory Tests Test 12/27/18 11:25 12/27/18 16:46 12/27/18 20:56 12/28/18 05:26 Glucose (Fingerstick) 172 mg/dL (70-99) 150 mg/dL (70-99) 155 mg/dL (70-99) Prothrombin Time 14.5 SEC (11.7-14.0) Prothromb Time International Ratio 1.2 (0.8-1.1) Test 12/28/18 07:41 Glucose (Fingerstick) 117 mg/dL (70-99) Medications Current Medications Ondansetron HCl (Zofran) 4 mg PRN Q6HRS PRN IV NAUSEA/VOMITING; Start 12/22/18 at 07:00; Stop 12/23/18 at 06:59; Status DC Fentanyl Citrate (Fentanyl 2ml Vial) 25 mcg PRN Q5MIN PRN IV MILD PAIN; Start 12/22/18 at 07:00; Stop 12/23/18 at 06:59; Status DC Fentanyl Citrate (Fentanyl 2ml Vial) 50 mcg PRN Q5MIN PRN IV MODERATE TO SEVERE PAIN; Start 12/22/18 at 07:00; Stop 12/23/18 at 06:59; Status DC Morphine Sulfate (Morphine Sulfate) 1 mg PRN Q10MIN PRN IV SEVERE PAIN; Start 12/22/18 at 07:00; Stop 12/23/18 at 06:59; Status DC Ringer's Solution 1,000 ml @ 30 mls/hr Q24H IV Last administered on 12/22/18at 16:02; Start 12/22/18 at 07:00; Stop 12/22/18 at 18:59; Status DC Lidocaine HCl (Xylocaine-Mpf 1% 2ml Vial) 2 ml PRN 1X PRN ID IV START; Start at 07:00; Stop 12/23/18 at 06:59; Status DC Hydromorphone HCl (Dilaudid) 0.5 mg PRN Q10MIN PRN IV SEV PAIN, Second choice Last administered on 12/22/18at 17:23; Start 12/22/18 at 07:00; Stop 12/23/18 at 06:59; Status DC Prochlorperazine Edisylate (Compazine) 5 mg PACU PRN PRN IV NAUSEA, MRX1 Last administered on 12/22/18at 16:03; Start 12/22/18 at 07:00; Stop 12/23/18 at 06:59 ; Status DC Cefoxitin Sodium (Mefoxin) 1 gm PREOP 1X IVP ; Start 12/22/18 at 06:00; Status Cancel Dextrose (Dextrose 50%-Water Syringe) 25 gm 1X ONCE IV Last administered on at 10:38; Start 12/22/18 at 10:15; Stop 12/22/18 at 10:16; Status DC Iohexol (Omnipaque 300 Mg/ml) 100 ml STK-MED ONCE .ROUTE ; Start 12/22/18 at 10: 45; Stop 12/22/18 at 10:46; Status DC Lidocaine HCl (Glydo (Lidocaine) Jelly) 6 enam STK-MED ONCE .ROUTE ; Start at 10:45; Stop 12/22/18 at 10:46; Status DC Lidocaine HCl (Glydo (Lidocaine) Jelly) 6 enma STK-MED ONCE .ROUTE ; Start at 10:45; Stop 12/22/18 at 10:46; Status Cancel Propofol 20 ml @ As Directed STK-MED ONCE IV ; Start 12/22/18 at 11:00; Stop at 11:01; Status DC Dexamethasone Sodium Phosphate (Decadron) 20 mg STK-MED ONCE .ROUTE ; Start at 11:00; Stop 12/22/18 at 11:01; Status DC Lidocaine HCl (Lidocaine Pf 2% Vial) 5 ml STK-MED ONCE .ROUTE ; Start 12/22/18 at 11:00; Stop 12/22/18 at 11:01; Status DC Ondansetron HCl (Zofran) 4 mg STK-MED ONCE .ROUTE ; Start 12/22/18 at 11:00; Stop 12/22/18 at 11:01; Status DC Rocuronium [place] (Zemuron) 50 mg STK-MED ONCE .ROUTE ; Start 12/22/18 at 11:00 ; Stop 12/22/18 at 11:01; Status DC Fentanyl Citrate (Fentanyl 2ml Vial) 100 mcg STK-MED ONCE .ROUTE ; Start at 11:00; Stop 12/22/18 at 11:01; Status DC Cefoxitin Sodium 2 gm/Dextrose 100 ml @ 200 mls/hr ONCE ONCE IV Last administered on 12/22/18at 11:46; Start 12/22/18 at 11:45; Stop 12/22/18 at 12:14 ; Status DC Ephedrine Sulfate (Akovaz) 50 mg STK-MED ONCE .ROUTE ; Start 12/22/18 at 11:56; Stop 12/22/18 at 11:57; Status DC Ephedrine Sulfate (Akovaz) 25 mg 1X ONCE IV ; Start 12/22/18 at 12:00; Stop at 12:01; Status DC Glycopyrrolate (Robinul) 1 mg STK-MED ONCE .ROUTE ; Start 12/22/18 at 11:59; Stop 12/22/18 at 12:00; Status DC Vasopressin (Vasostrict) 20 unit STK-MED ONCE .ROUTE ; Start 12/22/18 at 11:59; Stop 12/22/18 at 12:00; Status DC Rocuronium [place] (Zemuron) 50 mg STK-MED ONCE .ROUTE ; Start 12/22/18 at 12:06 ; Stop 12/22/18 at 12:07; Status DC Phenylephrine HCl (Craig-Synephrine Inj) 10 mg STK-MED ONCE .ROUTE ; Start at 12:15; Stop 12/22/18 at 12:16; Status DC Cefoxitin Sodium 2 gm/Dextrose 100 ml @ 200 mls/hr ONCE ONCE IV Last administered on 12/22/18at 13:55; Start 12/22/18 at 14:00; Stop 12/22/18 at 14:29 ; Status DC Albumin Human 500 ml @ As Directed STK-MED ONCE IV ; Start 12/22/18 at 14:35; Stop 12/22/18 at 14:36; Status DC Sevoflurane (Ultane) 90 ml STK-MED ONCE IH ; Start 12/22/18 at 15:03; Stop 12/22 at 15:04; Status DC Neostigmine Methylsulfate (Bloxiverz) 10 mg STK-MED ONCE .ROUTE ; Start at 15:03; Stop 12/22/18 at 15:04; Status DC Lidocaine HCl (Lidocaine Pf 2% Vial) 5 ml STK-MED ONCE .ROUTE ; Start 12/22/18 at 15:34; Stop 12/22/18 at 15:35; Status DC Morphine Sulfate (Morphine Sulfate) 10 mg STK-MED ONCE .ROUTE ; Start 12/22/18 at 15:42; Stop 12/22/18 at 15:43; Status DC Enoxaparin Sodium (Lovenox 40mg Syringe) 40 mg Q12HR SQ Last administered on at 07:45; Start 12/22/18 at 21:00 Sodium Chloride (Normal Saline Flush) 3 ml QSHIFT PRN IV AFTER MEDS AND BLOOD DRAWS; Start 12/22/18 at 16:30 Potassium Chloride/Sodium Chloride 1,000 ml @ 100 mls/hr Q10H IV Last administered on 12/24/18at 08:38; Start 12/22/18 at 18:00; Stop 12/24/18 at 14:26 ; Status DC Hydromorphone HCl 30 ml @ 0 mls/hr CONT PRN PRN IV PER PROTOCOL Last administered on 12/26/18at 16:30; Start 12/22/18 at 16:30; Stop 12/27/18 at 08:08 ; Status DC Ondansetron HCl (Zofran) 4 mg PRN Q6HRS PRN IV NAUESA, 1ST CHOICE Last administered on 12/27/18at 08:38; Start 12/22/18 at 16:30 Throat Lozenges (Chloraseptic) 1 spray PRN Q2HR PRN PO SORE THROAT 2ND CHOICE; Start 12/22/18 at 16:30 Throat Lozenges (Cepacol Sore Throat Lozenge) 1 sridhar PRN Q2HRS PRN PO SORE THROAT 1ST CHOICE; Start 12/22/18 at 16:30 Naloxone HCl (Narcan) 0.4 mg PRN Q2MIN PRN IV SEE COMMENTS; Start 12/22/18 at 17:00 Cefoxitin Sodium 100 ml @ As Directed STK-MED ONCE IV ; Start 12/22/18 at 11:32 ; Stop 12/23/18 at 10:40; Status DC Throat Lozenges (Cepacol Sore Throat Lozenge) 1 sridhar PRN Q2HRS PRN PO SORE THROAT; Start 12/24/18 at 11:15; Status UNV Saliva Substitute (Biotene Moisturizing Mouth) 2 spray PRN Q15MIN PRN PO DRY MOUTH Last administered on 12/25/18at 08:15; Start 12/24/18 at 11:15 Levothyroxine Sodium 50 mcg/ Sodium Chloride 5 ml @ 100 mls/hr DAILY IVP ; Start 12/24/18 at 14:30; Stop 12/26/18 at 09:15; Status UNV Insulin Human Lispro (HumaLOG) 0-9 UNITS TIDWMEALS SQ ; Start 12/24/18 at 17:00 Dextrose (Dextrose 50%-Water Syringe) 12.5 gm PRN Q15MIN PRN IV SEE COMMENTS; Start 12/24/18 at 14:30 Potassium Chloride/Dextrose/ Sod Cl 1,000 ml @ 100 mls/hr Q10H IV Last administered on 12/26/18at 22:20; Start 12/24/18 at 14:30; Stop 12/27/18 at 08:08 ; Status DC Insulin Glargine (Lantus) 10 units DAILY SQ ; Start 12/24/18 at 15:00; Stop at 15:37; Status DC Insulin Glargine (Lantus) 10 units HS SQ Last administered on 12/27/18at 21:00; Start 12/24/18 at 21:00 Oxycodone/ Acetaminophen (Percocet 5/325) 1 tab PRN Q4HRS PRN PO MODERATE PAIN ; Start 12/27/18 at 08:15 Oxycodone/ Acetaminophen (Percocet 10/325) 1 tab PRN Q4HRS PRN PO SEVERE PAIN Last administered on 12/27/18 17:32; Start 12/27/18 at 08:15 Docusate Sodium (Colace) 100 mg DAILY PO Last administered on 12/28/18 07:44; Start 12/27/18 at 09:00 Polyethylene Glycol (miraLAX PACKET) 17 gm PRN DAILY PRN PO CONSTIPATION; Start 12/27/18 at 08:15 Magnesium Hydroxide (Milk Of Magnesia) 2,400 mg PRN DAILY PRN PO CONSTIPATION; Start 12/27/18 at 08:15 Morphine Sulfate (Ms Contin) 30 mg BID PO Last administered on 12/27/18at 10:26 ; Start 12/27/18 at 10:00; Stop 12/27/18 at 11:53; Status DC Warfarin Sodium (Coumadin Per Pharmacy) 1 each PRN DAILY PRN MC SEE COMMENTS Last administered on 12/27/18 14:04; Start 12/27/18 at 10:00 Fentanyl Citrate (Fentanyl 2ml Vial) 50 mcg PRN Q2HR PRN IV MODERATE TO SEVERE PAIN Last administered on 12/28/18at 07:44; Start 12/27/18 at 10:30 Warfarin Sodium (Coumadin) 7.5 mg 1X WARF ONCE PO Last administered on 17:32; Start 12/27/18 at 16:00; Stop 12/27/18 at 16:01; Status DC Morphine Sulfate (Ms Contin) 60 mg BID PO Last administered on 12/28/18 07:45 ; Start 12/27/18 at 21:00 Ropinirole HCl (Requip) 0.25 mg TID PO Last administered on 12/28/18 07:44; Start 12/27/18 at 15:00 Diphenhydramine HCl (Benadryl) 25 mg PRN QHS PRN PO INSOMNIA Last administered on 12/27/18at 22:52; Start 12/27/18 at 21:30 Active Scripts Active Morphine Sulfate Er (Morphine Sulfate) 30 Mg Tablet.er 60 Mg PO BID 30 Days Reported Gabapentin 600 Mg Tablet 300 Mg PO BID Lasix (Furosemide) 40 Mg Tablet 1 Tab PO DAILY Glimepiride 4 Mg Tablet 1 Tab PO BID Bystolic (Nebivolol Hcl) 20 Mg Tablet 20 Mg PO DAILY Levothyroxine Sodium 50 Mcg Tablet 75 Mcg PO DAILY Warfarin Sodium 6 Mg Tablet 6 Mg PO DAILY Metformin Hcl 1,000 Mg Tablet 1 Tab PO BID Losartan-Hctz 100-12.5 Mg Tab (Losartan/Hydrochlorothiazide) 1 Each Tablet 1 Tab PO DAILY Vitals/I & O Vital Sign - Last 24 Hours 12/27/18 12/27/18 12/27/18 12/27/18 10:26 11:00 11:18 14:30 Temp 97.8 97.8 Pulse 105 Resp 18 B/P (MAP) 115/75 (88) Pulse Ox 94 O2 Delivery Room Air Room Air Room Air Room Air 12/27/18 12/27/18 12/27/18 12/27/18 14:50 15:00 17:32 18:35 Temp 97.9 97.9 Pulse 100 Resp 18 B/P (MAP) 118/76 (90) Pulse Ox 95 O2 Delivery Room Air Room Air Room Air Room Air 12/27/18 12/27/18 12/27/18 12/27/18 19:00 19:28 20:00 20:50 Temp 97.7 97.7 Pulse 100 Resp 18 20 B/P (MAP) 145/82 (103) Pulse Ox 93 93 O2 Delivery Room Air Room Air Room Air Room Air 12/27/18 12/28/18 12/28/18 12/28/18 23:00 00:25 00:50 02:58 Temp 97.9 97.7 97.9 97.7 Pulse 92 93 Resp 18 20 20 16 B/P (MAP) 145/83 (103) 155/93 (113) Pulse Ox 92 92 92 94 O2 Delivery Room Air Room Air Room Air Room Air 12/28/18 12/28/18 12/28/18 12/28/18 03:13 03:43 07:00 07:44 Temp 97.9 97.9 Pulse 84 Resp 20 20 18 B/P (MAP) 136/89 (105) Pulse Ox 94 94 95 O2 Delivery Room Air Room Air Room Air Room Air 12/28/18 12/28/18 07:45 07:53 O2 Delivery Room Air Room Air Intake and Output 12/27/18 12/27/18 12/28/18 14:59 22:59 06:59 Output Total 130 ml 1220 ml Balance -130 ml -1220 ml ROULA CANSECO MD Dec 28, 2018 09:59
[2018-12-28] MEDS: GABAPENTIN 300 MG CAPSULE. PO SCH ×2 (10:53→20:38)
[2018-12-28] MEDS: oxyCODONE/APAP 10/325 1 TAB TABLET PO PRN (10:54)
[2018-12-28 11:00] VITALS: BP 138/88
--- NOTE | 2018-12-28 12:03 | NUR ---
SS following up with discharge planning. SS met with pt in room to discuss discharge planning. Pt reported that he cannot go home at discharge due to having 9-10 stairs to climb. He reported that he is too weak and has not been able to do stairs. Pt reported that he must go to [facility] and requested that SS send referral. SS reviewed PT/OT notes. PT recommended long-term unit today. SS phoned and faxed referral to [facility], ; fax [phone]. SS awaiting acceptance decision and insurance determination and will proceed accordingly. Pt notified that if not approved for long-term unit he will need to be transported to home with home healthcare.
[2018-12-28 15:00] VITALS: BP 132/81
[2018-12-28] MEDS ORDERED: WARFARIN 3 MG TABLET. PO ONE (16:00)
--- NOTE | 2018-12-28 16:08 | NUR ---
SS following up with discharge planning. Pt accepted at [facility], ; fax [phone], pending insurance authorization with [facility]. SS will await insurance determination and will proceed accordingly with discharge planning.
[2018-12-28 19:00] VITALS: BP 156/92
[2018-12-28] MEDS: INSULIN GLARGINE 300 UNITS/3 ML INSULN.PEN. SQ SCH (20:44)
[2018-12-28 22:48] VITALS: BP 156/84
[2018-12-29 03:00] VITALS: BP 157/88
[2018-12-29 07:00] VITALS: BP 154/91
[2018-12-29] MEDS: INSULIN LISPRO 300 UNITS/3 ML INSULN.PEN. SQ SCH ×2 (08:00→12:15)
[2018-12-29] MEDS ORDERED: MORP30TA3 PO (08:36)
[2018-12-29] MEDS ORDERED: INSU100I13 SQ (08:36)
[2018-12-29] MEDS ORDERED: ROPI0.25 PO (08:36)
--- NOTE | 2018-12-29 08:37 | DISCH ---
DISCHARGE DISCHARGE INFORMATION: DISCHARGE DATE: Dec 29, 2018 CONDITION ON DISCHARGE: Stable CODE STATUS: Code Status: Full HALFWAY: SNF STAY <30 DAYS: Yes HOSPICE: HOSPICE: No HOSPICE EVAL & TREAT: No LTAC: ADMIT TO LTAC: No POST DISCHARGE ORDERS: ACTIVITY ORDERS: Resume previous activity WEIGHT BEARING STATUS: Full weight bearing BATHING ORDERS: Shower-keep dressing dry DIET AFTER DISCHARGE: Cardiac WOUND/INCISION CARE: Change dressing, Reinforce dressing PRN, Other, see below CHECKS AFTER DISCHARGE: CHECKS AFTER DISCHARGE: Check blood press - daily, Check blood sugar, ac/hs, Check your Temp as needed FOLLOW-UP: PHYSICIAN FOLLOW-UP: pcp re mds, refill TREATMENT/EQUIPMENT ORDERS: ADAPTIVE EQUIPMENT NEEDED: None Physical Therapy For: Evalulation/Treatment Occupational Therapy For: Evaluation/Treatment DISCHARGE MEDICATIONS: Home Meds Active Scripts Insulin Glargine,Hum.rec.anlog (LANTUS SOLOSTAR) 100 Unit/1 Ml Insuln.pen, 10 UNITS SQ HS for dm2 MDD 1, #30 EACH Prov:ROULA CANSECO MD 12/29/18 Ropinirole Hcl (REQUIP) 0.25 Mg Tablet, 0.25 MG PO TID for RLS MDD 1, #30 TAB Prov:ROULA CANSECO MD 12/29/18 Morphine Sulfate (MORPHINE SULFATE ER) 30 Mg Tablet.er, 60 MG PO BID for chronic pain MDD 1 for 30 Days, #60 TAB.SR Prov:ROULA CANSECO MD 12/29/18 Reported Medications Gabapentin (GABAPENTIN) 600 Mg Tablet, 300 MG PO BID for NEUROGENIC PAIN, TAB 12/14/18 Furosemide (LASIX) 40 Mg Tablet, 1 TAB PO DAILY for diuretic, #90 TAB 1 Refill 12/14/18 Glimepiride (GLIMEPIRIDE) 4 Mg Tablet, 1 TAB PO BID for DM, #180 TAB 1 Refill 09/11/18 Nebivolol Hcl (BYSTOLIC) 20 Mg Tablet, 20 MG PO DAILY for HTN , TAB 09/11/18 Levothyroxine Sodium (LEVOTHYROXINE SODIUM) 50 Mcg Tablet, 75 MCG PO DAILY for hypothyroid , #30 TAB 5 Refills 09/11/18 Warfarin Sodium (WARFARIN SODIUM) 6 Mg Tablet, 6 MG PO DAILY for DVT , TAB 11/10/18 Metformin Hcl (METFORMIN HCL) 1,000 Mg Tablet, 1 TAB PO BID, #60 TAB 5 Refills 02/12/16 Losartan/Hydrochlorothiazide (LOSARTAN-HCTZ 100-12.5 MG TAB) 1 Each Tablet, 1 TAB PO DAILY, #30 TAB 5 Refills 02/12/16 ROULA CANSECO MD Dec 29, 2018 08:36
[2018-12-29] MEDS: GABAPENTIN 300 MG CAPSULE. PO SCH (09:35)
[2018-12-29] MEDS: MORPHINE ER 30 MG TABLET.ER PO SCH (09:35)
[2018-12-29] MEDS: DOCUSATE SODIUM 100 MG CAPSULE. PO SCH (09:35)
[2018-12-29] MEDS: rOPINIRole 0.25 MG TABLET. PO SCH (09:35)
[2018-12-29] MEDS: ENOXAPARIN 40 MG/0.4 ML SYRINGE. SQ SCH (09:35)
--- NOTE | 2018-12-29 10:00 | NUR ---
Wound Care; Follow up for wound to L neck, below ear. Cleansed and covered with contact layer and telfa island dressing. Assessed surgical incisions at site of colostomy takedown, with small amount of serosanguinous drainage noted. Pt is going to a SNF and plans to follow up with surgeon in a week or so. Able to reposition in bed independently. No other open areas noted on head to toe assessment.
--- NOTE | 2018-12-29 10:14 | PDOC3 ---
Discharge Summary Visit Information Date of Admission: Dec 22, 2018 Date of Discharge: Dec 29, 2018 Admitting Diagnosis Comment: status post colostomy takedown ( indwelling 3 months) for diverticulitis episode HTN, Hyperlipidemia History of Pulmonary embolus, chronic anticoagulation with coumadin GERD Cholelithiasis Osteoarthritis, obesity, BMI 48 Diabetes mellitus type 2 insulin requiring Venous dermatitis Brief Hospital Course Allergies Allergies Coded Allergies Type Severity Reaction Last Updated Verified I S O L A T I O N *CONTACT* Allergy Unknown 12/22/18 Yes No Known Medication Allergies Allergy Unknown 12/22/18 Yes Vital Signs Vital Signs Date Time Temp Pulse Resp B/P (MAP) Pulse Ox O2 Delivery O2 Flow Rate FiO2 12/29/18 09:35 Room Air 12/29/18 07:00 98.1 90 18 154/91 (112) 95 98.1 Lab Results Laboratory Tests Test 12/27/18 11:25 12/27/18 16:46 12/27/18 20:56 12/28/18 05:26 Glucose (Fingerstick) 172 mg/dL (70-99) 150 mg/dL (70-99) 155 mg/dL (70-99) Prothrombin Time 14.5 SEC (11.7-14.0) Prothromb Time International Ratio 1.2 (0.8-1.1) Test 12/28/18 07:41 12/28/18 11:14 12/28/18 16:49 12/28/18 20:30 Glucose (Fingerstick) 117 mg/dL (70-99) 195 mg/dL (70-99) 151 mg/dL (70-99) 206 mg/dL (70-99) Test 12/29/18 03:15 12/29/18 07:42 Prothrombin Time 15.0 SEC (11.7-14.0) Prothromb Time International Ratio 1.2 (0.8-1.1) Glucose (Fingerstick) 134 mg/dL (70-99) Laboratory Tests Test 12/28/18 11:14 12/28/18 16:49 12/28/18 20:30 12/29/18 03:15 Glucose (Fingerstick) 195 mg/dL (70-99) 151 mg/dL (70-99) 206 mg/dL (70-99) Prothrombin Time 15.0 SEC (11.7-14.0) Prothromb Time International Ratio 1.2 (0.8-1.1) Test 12/29/18 07:42 Glucose (Fingerstick) 134 mg/dL (70-99) Brief Hospital Course Mr. Leyva is a 63 old male, obese with a BMI 49, admitted for PEG takedown which she only used for couple months after his episode of diverticulitis. But he stayed essentially 7 days for a mere PEG-type takedown because he is very narcotic dependent on MS Contin 60 twice a day and was on a [employer] for days after the simple surgical procedure. In any case, course is remarkable for quite being a difficult patient to deal with, he was adamant he needed SNU. PT initially recommend home with home health. Reevaluation seemed he can benefit from SNU hence we have arranged SNU hence accepted in SNU No new medications except he requested refills of his pain medicines Consults performed GS Procedures performed PEG/G tube etc take down Discharge Information Condition at Discharge: Improved, Stable Disposition/Orders: Other (snu) Scheduled Furosemide (Lasix) 40 Mg Tablet, 1 TAB PO DAILY for diuretic, #90 Ref 1 ( Reported) Entered as Reported by: LELAND AGRAWAL on 12/14/1848 Last Taken: Unknown Dose on 12/17/18 Last Action: HELD on 12/28/18950 by ROULA CANSECO Gabapentin (Gabapentin) 600 Mg Tablet, 300 MG PO BID for NEUROGENIC PAIN, ( Reported) Entered as Reported by: LELAND AGRAWAL on 12/14/18 0953 Last Taken: Unknown Dose on 12/22/18699 Last Action: Converted on 950 by ROULA CANSECO Glimepiride (Glimepiride) 4 Mg Tablet, 1 TAB PO BID for DM, #180 Ref 1 (Reported ) Entered as Reported by: TOMMY GALLEGOS on 09/11/181917 Last Taken: Unknown Dose on 12/22/18699 Last Action: HELD on 12/28/18950 by ROULA CANSECO Insulin Glargine,Hum.rec.anlog (Lantus Solostar) 100 Unit/1 Ml Insuln.pen, 10 UNITS SQ HS for dm2 MDD 1, #30 Prescribed by: ROULA CANSECO on 12/29/18 0836 Levothyroxine Sodium (Levothyroxine Sodium) 50 Mcg Tablet, 75 MCG PO DAILY for hypothyroid , #30 Ref 5 (Reported) Entered as Reported by: TOMMY GALLEGOS on 09/11/181917 Last Taken: Unknown Dose on 12/22/18699 Last Action: HELD on 12/28/18950 by ROULA CANSECO Losartan/Hydrochlorothiazide (Losartan-Hctz 100-12.5 Mg Tab) 1 Each Tablet, 1 TAB PO DAILY, #30 Ref 5 (Reported) Entered as Reported by: DICK RAND on 02/12/161247 Last Taken: Unknown Dose on 12/22/18699 Last Action: HELD on 12/28/18950 by ROULA CANSECO Metformin Hcl (Metformin Hcl) 1,000 Mg Tablet, 1 TAB PO BID, #60 Ref 5 (Reported ) Entered as Reported by: DICK RAND on 02/12/161247 Last Taken: Unknown Dose on 12/22/18699 Last Action: HELD on 12/28/18950 by ROULA CANSECO Morphine Sulfate (Morphine Sulfate Er) 30 Mg Tablet.er, 60 MG PO BID for chronic pain MDD 1 for 30 Days, #60 Prescribed by: ROULA CANSECO on 12/29/1836 Nebivolol Hcl (Bystolic) 20 Mg Tablet, 20 MG PO DAILY for HTN , (Reported) Entered as Reported by: TOMMY GALLEGOS on 09/11/181917 Last Taken: Unknown Dose on 12/22/18699 Last Action: HELD on 12/28/18950 by ROULA CANSECO Ropinirole Hcl (Requip) 0.25 Mg Tablet, 0.25 MG PO TID for RLS MDD 1, #30 Prescribed by: ROULA CANSECO on 12/29/1836 Warfarin Sodium (Warfarin Sodium) 6 Mg Tablet, 6 MG PO DAILY for DVT , (Reported ) Entered as Reported by: TOMMY GALLEGOS on 09/11/181917 Last Taken: Unknown Dose on 12/17/18 Last Action: HELD on 12/28/18950 by ROULA BRITT MD Dec 29, 2018 10:14
--- NOTE | 2018-12-29 10:50 | PDOC ---
SURGICAL PROGRESS NOTE Subjective ready to head to [facility] no new complaints Vital Signs Vital Signs Date Time Temp Pulse Resp B/P (MAP) Pulse Ox O2 Delivery O2 Flow Rate FiO2 12/29/18 09:35 Room Air 12/29/18 07:00 98.1 90 18 154/91 (112) 95 98.1 I&O Intake and Output 12/29/18 07:00 Intake Total 400 ml Output Total 160 ml Balance 240 ml Intake Oral 400 ml Drainage Total 160 ml # Voids 9 PATIENT HAS A RUGGIERO: No Abdomen: Soft, No tenderness, Other (incision c/d) Labs Laboratory Tests Test 12/27/18 11:25 12/27/18 16:46 12/27/18 20:56 12/28/18 05:26 Glucose (Fingerstick) 172 mg/dL (70-99) 150 mg/dL (70-99) 155 mg/dL (70-99) Prothrombin Time 14.5 SEC (11.7-14.0) Prothromb Time International Ratio 1.2 (0.8-1.1) Test 12/28/18 07:41 12/28/18 11:14 12/28/18 16:49 12/28/18 20:30 Glucose (Fingerstick) 117 mg/dL (70-99) 195 mg/dL (70-99) 151 mg/dL (70-99) 206 mg/dL (70-99) Test 12/29/18 03:15 12/29/18 07:42 Prothrombin Time 15.0 SEC (11.7-14.0) Prothromb Time International Ratio 1.2 (0.8-1.1) Glucose (Fingerstick) 134 mg/dL (70-99) Laboratory Tests Test 12/28/18 11:14 12/28/18 16:49 12/28/18 20:30 12/29/18 03:15 Glucose (Fingerstick) 195 mg/dL (70-99) 151 mg/dL (70-99) 206 mg/dL (70-99) Prothrombin Time 15.0 SEC (11.7-14.0) Prothromb Time International Ratio 1.2 (0.8-1.1) Test 12/29/18 07:42 Glucose (Fingerstick) 134 mg/dL (70-99) Assessment/Plan POD 7 colostomy take down to [facility] today to [facility] office next week ANNIE HARRIS MD Dec 29, 2018 10:50
--- NOTE | 2018-12-29 11:20 | NUR ---
NILESH following, discussed with RN. [facility] will transport pt at noon today. RN notified. NILESH will continue to follow.
--- NOTE | 2018-12-29 14:18 | RAD ---
Examination: Single frontal view of the abdomen HISTORY: History of follow-up brain tumor COMPARISON: 12/22/2018 Findings/ impression: The previously visualized drain identified in the right side of the pelvis is not visualized on today's examination. The bowel gas pattern appears unremarkable. Calcified vasculature identified in the left upper quadrant of the abdomen. Electronically signed by: Braxton Aviles MD (12/29/2018 2:15 PM) [id number]
--- NOTE | 2018-12-29 14:41 | NUR ---
Pt discharged to [facility]. Called and gave report to Yesica. IV removed by JOSTIN. Pt in stable condition. Assisted to wheelchair and was taken by transportation.
== END 2018-12-29 13:30 | DRG 344 ==
LOC: OPSVCIP 12-22 09:40 → 4 NORTH 12-22 17:47
PROVIDERS: ADMIT Surgery; ATTEND Surgery
PROC: 0T788DZ Dilation of Bilateral Ureters with Intraluminal Device, Via Natural or Artificial Opening Endoscopic (ICD-10-PCS; principal; 2018-12-22 11:30)
PROC: 0DSN0ZZ Reposition Sigmoid Colon, Open Approach (ICD-10-PCS; 2018-12-23)
PROC: 0TP93DZ Removal of Intraluminal Device from Ureter, Percutaneous Approach (ICD-10-PCS; 2018-12-23)
PROC: 0DJD8ZZ Inspection of Lower Intestinal Tract, Via Natural or Artificial Opening Endoscopic (ICD-10-PCS; 2018-12-23)
DX: Z43.3 Encounter for attention to colostomy (principal); E43 Unspecified severe protein-calorie malnutrition; Z68.42 Body mass index [BMI] 45.0-49.9, adult; I10 Essential (primary) hypertension; E78.5 Hyperlipidemia, unspecified; K21.9 Gastro-esophageal reflux disease without esophagitis; K80.20 Calculus of gallbladder without cholecystitis without obstruction; M19.90 Unspecified osteoarthritis, unspecified site; E66.01 Morbid (severe) obesity due to excess calories; E11.9 Type 2 diabetes mellitus without complications; Z79.4 Long term (current) use of insulin; L30.9 Dermatitis, unspecified; E03.9 Hypothyroidism, unspecified; G25.81 Restless legs syndrome; G47.33 Obstructive sleep apnea (adult) (pediatric); G89.29 Other chronic pain; Z79.01 Long term (current) use of anticoagulants; Z79.890 Hormone replacement therapy; Z79.891 Long term (current) use of opiate analgesic; Z79.899 Other long term (current) drug therapy; Z86.711 Personal history of pulmonary embolism; Z98.0 Intestinal bypass and anastomosis status; Z90.49 Acquired absence of other specified parts of digestive tract; Z87.891 Personal history of nicotine dependence
CPT/HCPCS: 36415; 74018; 80048; 80053; 82962; 85025; 85610; 85730; 86850; 86900; 86901; 87641; 88304; 88305; A7015; J0694; J0780; J1100; J1170; J1650; J1815; J2001; J2270; J2405; J2704; J2710; J3010; J3490; J7042; J7120; P9045; Q0163; Q9967; 97110; 97116; 97530; 97535; A4461

== ENCOUNTER → 2018-12-14 | Outpatient (CLI) | payer MEDICARE ==
[2018-09-16 16:37] VITALS: BP 142/73
[~2018-12-14] MED LIST: AMOX1TAB61 PO; BYSTOLIC20 MG PO; CARV12.511 PO; CLON0.1T12 PO; DAPA10TA PO; FURO-68 PO; FURO40TA4 PO; GABA600T7 PO; GLIM4TAB2 PO; LACT1CAP19 PO; LEVO50TA5 PO; LINA5TAB PO; LINE600T PO; LOSA1TAB25 PO; METF10007 PO; MORP100T30 PO; MORP30TA3 PO; OXYC1TAB7 PO; WARF6TAB47 PO; WARF7.5T48 PO
[2018-12-14 10:32] LABS: BASO # 0.1 x10^3/uL (0.0-0.2); BASO % 1 % (0-3); EOS # 0.2 x10^3/uL (0.0-0.7); EOS % 2 % (0-3); HEMATOCRIT 37.2 % (39.0-53.0); HEMOGLOBIN 11.6 g/dL (13.0-17.5); LYMPH # 1.6 x10^3/uL (1.0-4.8); LYMPH % 18 % (24-48); MEAN CORPUSCULAR HEMOGLOBIN 23 pg (25-35); MEAN CORPUSCULAR HGB CONC 31 g/dL (31-37); MEAN CORPUSCULAR VOLUME 73 fL (79-100); MONO % 11 % (0-9); NEUT # 6.1 x10^3uL (1.8-7.7); NEUT % 68 % (31-73); PLATELET COUNT 284 x10^3/uL (140-400); RED BLOOD COUNT 5.09 x10^6/uL (4.30-5.70); RED CELL DISTRIBUTION WIDTH 18.6 % (11.5-14.5)
[2018-12-14 10:34] LABS: ALBUMIN 3.2 g/dL (3.4-5.0); CALCIUM 9.1 mg/dL (8.5-10.1); GFR 75.5; POTASSIUM 4.1 mmol/L (3.5-5.1)
[2018-12-14 14:08] LABS: PLT ESTIMATE ADEQUATE (ADEQUATE)
[2018-12-14 14:09] LABS: ANISOCYTOSIS SLIGHT; HYPOCHROMIA MOD; MICROCYTOSIS SLIGHT
[2018-12-14 14:15] LABS: OVALOCYTES OCC
[2018-12-14 23:13] LABS: HEMOGLOBIN A1C 6.2 % (4.8-5.6)
== END | disposition home or self-care (01) ==
LOC: SURGPAT 08:59
PROVIDERS: ATTEND Surgery
DX: Z01.818 Encounter for other preprocedural examination (principal); K57.20 Diverticulitis of large intestine with perforation and abscess without bleeding; E11.9 Type 2 diabetes mellitus without complications
CPT/HCPCS: 36415; 80048; 82040; 83036; 85025

== ENCOUNTER → 2018-12-21 | Day surgery (SDC) | payer MEDICARE ==
[~2018-12-21] MED LIST changes: +FURO-68 PO; +GABA600T7 PO; +HYDROmorphone 2 MG/ML VIAL IV PRN; +INSU100I13 SQ; +IV RINGERS,LACTATED 1000ML 1,000 ML IV SCH; +LIDOCAINE 1% PF 2 ML VIAL. ID PRN; +MORPHINE SULFATE 2 MG/ML VIAL. IV PRN; +ONDANSETRON PF 4 MG/2 ML VIAL. IV PRN; +PROCHLORPERAZINE 10 MG/2 ML VIAL. IV PRN; +PROPOFOL 20 ML IV ONE; +PROPOFOL 40 ML IV ONE; +ROPI0.25 PO; +fentaNYL PF VIAL 100 MCG/2 ML VIAL IV PRN
[2018-12-21 11:14] VITALS: BP 154/87
--- NOTE | 2018-12-22 17:08 | PATHOLOGY ---
[facility] Accession Number: [id number] . 01 Material submitted: . PART A: POLYPOID LESION AT PERIAPPENDICEAL AREA PART B: ILEOCECAL VALVE NODULARITY BIOPSY . 01 Clinical history: . None provided . 02 Diagnosis: A. Colon biopsies, periappendiceal area: - Polypoid segments of colonic mucosa showing mild nonspecific chronic and focal acute inflammation. . B. Colon biopsy, ileocecal valve: - Mild nonspecific ileitis with mucosal-associated lymphoid aggregate. (JPM:tobias; 12/22/2018) QMS/12/22/2018 . 02 Comment: Sections of the periappendiceal area reveal polypoid segments of colonic mucosa which show mild nonspecific chronic and focal acute inflammation. There are a few mucosal -associated lymphoid nodules. There is no evidence of crypt architectural distortion, crypt abscesses, or granulomas. . Sections of the ileocecal valve biopsy reveal small intestine mucosa showing mild nonspecific chronic inflammation with a mucosal-associated lymphoid aggregate. There are no granulomas. (JPM:tobias; 12/22/2018) . 02 Electronically signed: . Dylan Eldridge MD, Pathologist NPI- [id number] . 01 Gross description: . A. Received in formalin labeled "Sid Leyva, polypoid lesion at periappendiceal area," are 5 segments of ruffin soft tissue measuring 1.3 x 0.8 x 0.2 m in aggregate dimensions and ranging from 0.3 to 0.4 cm in maximum dimension. The specimen is submitted entirely in cassette A1. . B. Received in formalin labeled "Leyva, Sid, ileocecal valve nodularity BX," is a single segment of ruffin soft tissue measuring 0.3 cm in maximum dimension. The specimen is entirely submitted in cassette B1. (TSD; 12/21/2018) TOB/TOB . 02 Pathologist provided ICD-10: K52.9 . 02 CPT . 302035, 461064 Specimen Comment: A courtesy copy of this report has been sent to Specimen Comment: [phone], , . Specimen Comment: Report sent to ,DR DAVILA / DR DR HARRIS Specimen Comment: A duplicate report has been generated due to demographic updates. Performed at: 01 [facility] [address], [place] [id number] MD Raul Grier MD Phone: [phone] Performed at: 02 [facility] [address] [place], [place] [id number] MD Dylan Eldridge MD Phone: [phone]
== END | disposition home or self-care (01) ==
LOC: ENDOS 08:50
PROVIDERS: ATTEND Internal Medicine
DX: K63.3 Ulcer of intestine (principal); K63.5 Polyp of colon; K52.9 Noninfective gastroenteritis and colitis, unspecified; K63.89 Other specified diseases of intestine; E11.9 Type 2 diabetes mellitus without complications; I10 Essential (primary) hypertension; E03.9 Hypothyroidism, unspecified; Z87.19 Personal history of other diseases of the digestive system; Z72.89 Other problems related to lifestyle; Z87.891 Personal history of nicotine dependence; Z79.84 Long term (current) use of oral hypoglycemic drugs; Z79.899 Other long term (current) drug therapy; Z90.49 Acquired absence of other specified parts of digestive tract; Z43.3 Encounter for attention to colostomy; Z88.8 Allergy status to other drugs, medicaments and biological substances
CPT/HCPCS: 45380; 82962; 88305; J2704